=== PATIENT | female | born 1935 | race Caucasian/White ===

== ENCOUNTER 2019-04-09 08:22 | Inpatient (IN) | payer MEDICARE ==
[~2019-04-09] VITALS: Ht 162.6 cm; Wt 51.7 kg
[2019-04-09] VITALS (10 sets, daily range): BP systolic 128–162; BP diastolic 66–88
--- OUTSIDE RECORDS SUMMARY | 2019-04-09 08:26 | XMS REPORT ---
[facility] Address Unknown Phone Unavailable Care Team Providers Care Sales Representative Advertising Name Role Phone Unavailable Unavailable Payers Payer Name Policy Type Policy Number Effective Date Expiration Date Problems This patient has no known problems. Allergies, Adverse Reactions, Alerts Allergy Name Allergy Type Status Severity Reaction(s) Onset Date Inactive Date Treating Clinician Comments Penicillins DA Active MO 2018-10-07 00:00:00 iodine DA Active MO 2018-10-07 00:00:00 codeine DA Active MO 2018-10-07 00:00:00 Penicillins DA Active MO 2018-06-18 00:00:00 iodine DA Active MO 2018-06-18 00:00:00 codeine DA Active MO 2018-06-18 00:00:00 Penicillins DA Active MO 2017-08-24 00:00:00 iodine DA Active MO 2017-08-24 00:00:00 codeine DA Active MO 2017-08-24 00:00:00 PLASTIC TAPE DA Active 2017-08-01 00:00:00 Medications This patient has no known medications. Results Test Description Test Time Test Comments Text Results Atomic Results Result Comments VITAMIN B12 2018-10-16 12:07:00 VITAMIN B12 (test code=VITB12) 579 pg/mL 193-986 FOLIC [id number] 12:07:00* Test Item Value Reference Range Comments FOLIC ACID (test code=FOL) 14.1 ng/mL 3.10-17.50 THYROID PROFILE [id number] 12:07:00* Test Item Value Reference Range Comments T3 UPTAKE (test code=T3UP) 32.0 % 30.0-40.0 T4 (THYROXINE) (test code=T4) 12.0 ug/dL 4.5-13.9 T7 (FREE THYROXINE INDEX) (test code=T7) 3.84 FTI 1.3-5.1 THYROID STIMULATING HORMONE (test code=TSH) 1.230 uIU/mL 0.36-3.74 TSH REFERENCE RANGES: EUTHYROID: 0.35 - 4.3 mIU/mL HYPO : > 5.5 mIU/mL HYPER : < 0.35 mIU/mL METHYLMALONIC [id number] 12:07:00* Test Item Value Reference Range Comments METHYLMALONIC ACID (test code=METHM) 199 nmol/L 0-378 [id number] 12:07:00* Test Item Value Reference Range Comments HOMOCYSTEINE (test code=HOMOCY) 20.4 umol/L 0.0-15.0 Performed At: [facility] [address] [id number] Terence Palomares MD Ph:[phone] VITAMIN [id number] 08:10:00* Test Item Value Reference Range Comments VITAMIN B12 (test code=VITB12) 579 pg/mL 193-986 FOLIC [id number] 08:10:00* Test Item Value Reference Range Comments FOLIC ACID (test code=FOL) 14.1 ng/mL 3.10-17.50 THYROID PROFILE [id number] 08:10:00* Test Item Value Reference Range Comments T3 UPTAKE (test code=T3UP) 32.0 % 30.0-40.0 T4 (THYROXINE) (test code=T4) 12.0 ug/dL 4.5-13.9 T7 (FREE THYROXINE INDEX) (test code=T7) 3.84 FTI 1.3-5.1 THYROID STIMULATING HORMONE (test code=TSH) 1.230 uIU/mL 0.36-3.74 TSH REFERENCE RANGES: EUTHYROID: 0.35 - 4.3 mIU/mL HYPO : > 5.5 mIU/mL HYPER : < 0.35 mIU/mL METHYLMALONIC [id number] 08:10:00* Test Item Value Reference Range Comments METHYLMALONIC ACID (test code=METHM) nmol/L [id number] 08:10:00* Test Item Value Reference Range Comments HOMOCYSTEINE (test code=HOMOCY) 20.4 umol/L 0.0-15.0 Performed At: [facility] [id number] [place], [place] [id number] Terence Palomares MD Ph:[phone] - XR CHEST 1 [id number] 18:36:00 FAX: Craig Erickson MD [phone] [place]: St: ADM FAX: Anais Zhang [phone] Name: STEVE CRYSTAL [facility] : 1935 Age/S: 83/F [address] [facility] Unit #: [id number] Loc: [place] [address] Phys: Anais Maxwell MD Acct: [id number] Dis Date: Status: ADM IN PHONE #: [phone] Exam Date: 10/11/2018 1638 FAX #: [phone] Reason: WEAKNESS EXAMS: CPT CODE: [id number] XR CHEST 1 V [id number] REASON FOR EXAM: WEAKNESS Exam Order Date: 10/11/2018 4:19 PM Ordering M.D.: Anais Maxwell MD PROCEDURE: - XR CHEST 1 V COMPARISON: AP chest x-ray October 07, 2018 FINDINGS: There is subsegmental atelectasis in the lung bases. The lungs are otherwise clear. 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 Atherosclerotic disease is present in the aortic arch. Sternotomy wires and other muscular skeletal structures are stable appearing. The visualized upper abdomen is within normal limits. IMPRESSION: No acute cardiopulmonary process. Bibasilar subsegmental atelectasis. at 1836 Reported and signed by: Red Lantigua MD CC: Craig Robles MD; Anais Maxwell MD Technologist: DIANE FormanR; Sia AnnClaudia Trnscrd Date/Time/By: 10/11/2018 (1835) : By: [email or web address] Orig Print D/T: S: 10/11/2018 (223) PAGE 1 Signed Report VITAMIN [id number] 18:21:00* Test Item Value Reference Range Comments VITAMIN B12 (test code=VITB12) 579 pg/mL 193-986 FOLIC [id number] 18:21:00* Test Item Value Reference Range Comments FOLIC ACID (test code=FOL) 14.1 ng/mL 3.10-17.50 THYROID PROFILE [id number] 18:21:00* Test Item Value Reference Range Comments T3 UPTAKE (test code=T3UP) 32.0 % 30.0-40.0 T4 (THYROXINE) (test code=T4) 12.0 ug/dL 4.5-13.9 T7 (FREE THYROXINE INDEX) (test code=T7) 3.84 FTI 1.3-5.1 THYROID STIMULATING HORMONE (test code=TSH) 1.230 uIU/mL 0.36-3.74 TSH REFERENCE RANGES: EUTHYROID: 0.35 - 4.3 mIU/mL HYPO : > 5.5 mIU/mL HYPER : < 0.35 mIU/mL METHYLMALONIC [id number] 18:21:00* Test Item Value Reference Range Comments METHYLMALONIC ACID (test code=METHM) nmol/L [id number] 18:21:00* Test Item Value Reference Range Comments HOMOCYSTEINE (test code=HOMOCY) umol/L [id number] 18:09:00* Test Item Value Reference Range Comments ALCOHOL (test code=ALC) < 3 mg/dL 0.0-3.0 INTERPRETIVE DATA NOTE: POSITIVE SCREENING RESULTS SHOULD BE CONSIDERED PRESUMPTIVE.WHEN COLLECTED FOR MEDICAL PURPOSES ONLY. SPECIMEN WILL NOTBE COLLECTED BY CHAIN OF CUSTODY.IF A CONFIRMATION OF POSITIVE RESULTS IS DESIRED, ACONFIRMATION TEST MUST BE REQUESTED BY THE PHYSICIAN AT ANADDITIONAL CHARGE TO THE PATIENT. [id number] 18:08:00* Test Item Value Reference Range Comments ACETAMINOPHEN (test code=ACET) < 10 mcg/mL 10-30 A RANGE OF 10-30 mcg/mL IS A THERAPEUTIC RANGE. TOXIC CONCENTRATIONS: >150 mcg/mL AT 4 HOURS AFTER INGESTION >=50 mcg/mL AT 12 HOURS AFTER INGESTION [id number] 18:08:00* Test Item Value Reference Range Comments SALICYLATE (test code=JIMMIE) 2.0 mg/dL 2.8-20.0 BASIC METABOLIC [id number] 18:02:00* Test Item Value Reference Range Comments SODIUM (test code=NA) 139 mmol/L 136-145 POTASSIUM (test code=K) 3.6 mmol/L 3.5-5.1 CHLORIDE (test code=CL) 105.0 mmol/L 98-107 CARBON DIOXIDE (test code=CO2) 26.0 mmol/L 21-32 ANION GAP (test code=GAP) 11.6 10-20 GLUCOSE (test code=GLU) 79 mg/dL 74-106 BLOOD UREA NITROGEN (test code=BUN) 24 mg/dL 7-18 GLOMERULAR FILTRATION RATE (test code=GFR) 36 mL/min >=60 Estimated GFR by using Modified MDRD formula.Chronic kidney disease is defined as either kidney damageor GFR <60 mL/min/1.73 m2 for >3 months. CREATININE (test code=CREAT) 1.40 mg/dL 0.55-1.02 Note change in reference range due to change in reagent. BUN/CREATININE RATIO (test code=BUN/CREA) 17.6 10-20 CALCIUM (test code=CA) 9.9 mg/dL 8.5-10.1 Specimen 4+ Hemolysed.Results MAY NOT be accurate due to hemolysis.HEPATIC FUNCTION [id number] 18:02:00* Test Item Value Reference Range Comments TOTAL PROTEIN (test code=PROT) 7.9 gram/dL 6.4-8.2 ALBUMIN (test code=ALB) 4.3 g/dL 3.4-5.0 GLOBULIN (test code=GLOB) 3.6 gram/dL 2.7-4.2 ALBUMIN/GLOBULIN RATIO (test code=A/G) 1.2 0.75-1.50 BILIRUBIN TOTAL (test code=BILT) 0.60 mg/dL 0.0-1.0 BILIRUBIN DIRECT (test code=BILD) 0.19 mg/dL 0.0-0.20 SGOT/AST (test code=AST) 21 IUnit/L 15-37 SGPT/ALT (test code=ALT) 18 IUnit/L 12-78 ALKALINE PHOSPHATASE TOTAL (test code=ALKP) 117 IUnit/L 45-117 Note change in reference range due to change in reagent. Specimen 4+ Hemolysed.Results MAY NOT be accurate due to hemolysis.LIPASE 2018-10-11 18:02:00* Test Item Value Reference Range Comments LIPASE (test code=LIP) 212 U/L 73.0-393.0 Specimen 4+ Hemolysed.Results MAY NOT be accurate due to hemolysis.TROPONIN-I 2018-10-11 18:02:00* Test Item Value Reference Range Comments TROPONIN-I (test code=TROPI) 0.017 ng/mL 0-0.045 Specimen 4+ Hemolysed.Results MAY NOT be accurate due to hemolysis.BASIC METABOLIC [id number] 17:49:00* Test Item Value Reference Range Comments SODIUM (test code=NA) 139 mmol/L 136-145 POTASSIUM (test code=K) 3.6 mmol/L 3.5-5.1 CHLORIDE (test code=CL) 105.0 mmol/L 98-107 CARBON DIOXIDE (test code=CO2) mmol/L 21-32 ANION GAP (test code=GAP) 10-20 GLUCOSE (test code=GLU) mg/dL 74-106 BLOOD UREA NITROGEN (test code=BUN) mg/dL 7-18 GLOMERULAR FILTRATION RATE (test code=GFR) mL/min >=60 CREATININE (test code=CREAT) mg/dL 0.55-1.02 BUN/CREATININE RATIO (test code=BUN/CREA) 10-20 CALCIUM (test code=CA) mg/dL 8.5-10.1 Specimen 4+ Hemolysed.Results MAY NOT be accurate due to hemolysis.HEPATIC FUNCTION [id number] 17:49:00* Test Item Value Reference Range Comments TOTAL PROTEIN (test code=PROT) gram/dL 6.4-8.2 ALBUMIN (test code=ALB) g/dL 3.4-5.0 GLOBULIN (test code=GLOB) gram/dL 2.7-4.2 ALBUMIN/GLOBULIN RATIO (test code=A/G) 0.75-1.50 BILIRUBIN TOTAL (test code=BILT) mg/dL 0.0-1.0 BILIRUBIN DIRECT (test code=BILD) mg/dL 0.0-0.20 SGOT/AST (test code=AST) IUnit/L 15-37 SGPT/ALT (test code=ALT) IUnit/L 12-78 ALKALINE PHOSPHATASE TOTAL (test code=ALKP) IUnit/L 45-117 Specimen 4+ Hemolysed.Results MAY NOT be accurate due to hemolysis.LIPASE 2018-10-11 17:49:00* Test Item Value Reference Range Comments LIPASE (test code=LIP) U/L 73.0-393.0 Specimen 4+ Hemolysed.Results MAY NOT be accurate due to hemolysis.TROPONIN-I 2018-10-11 17:49:00* Test Item Value Reference Range Comments TROPONIN-I (test code=TROPI) ng/mL 0-0.045 Specimen 4+ Hemolysed.Results MAY NOT be accurate due to hemolysis. PROTHROMBIN [id number] 17:15:00* Test Item Value Reference Range Comments PROTHROMBIN TIME PATIENT (test code=PTP) 13.9 seconds 9.0-14.0 INTERNATIONAL NORMAL RATIO (test code=INR) 1.2 0.8-1.2 The therapeutic range for oral anticoagulant therapy formost indications is an international normalized ratio (INR)of between 2.0 and 3.0. The recommended therapeutic INRrange for various clinical situations is listed below: Clinical Situation INR range Pulmonary e mbolism treatment (2.0-3.0)Venous thrombosis treatmentVenous thrombosis prophylaxis (high risk surgery)Prevention of systemic embolism from: Acute myocardial infarction Valvular heart disease Atrial fibrillation Mechanical prosthetic heart valves (2.5-3.5) IS PATIENT ON ANTICOAGULANTS? NTHROMBOPLASTIN TIME [id number] 17:15:00* Test Item Value Reference Range Comments THROMBOPLASTIN TIME PARTIAL (test code=PTT) 38.1 seconds 25.0-36.5 IS PATIENT ON ANTICOAGULANTS? NCBC W/O [id number] 17:03:00* Test Item Value Reference Range Comments WHITE BLOOD CELL (test code=WBC) 6.5 K/mm3 4.5-12.5 RED BLOOD CELL (test code=RBC) 4.59 mill/mm3 3.7-5.2 HEMOGLOBIN (test code=HGB) 12.3 gram/dL 11.5-15.5 HEMATOCRIT (test code=HCT) 40.1 % 36.0-46.0 MEAN CELL VOLUME (test code=MCV) 87.4 fL 80-98 MEAN CELL HGB (test code=MCH) 26.8 picogram 27.0-33.0 MEAN CELL HGB CONCETRATION (test code=MCHC) 30.7 gram/dL 33.0-36.0 RED CELL DISTRIBUTION WIDTH (test code=RDW) 18.0 % 11.6-16.2 PLATELET COUNT (test code=PLT) 242 K/mm3 150-450 MEAN PLATELET VOLUME (test code=MPV) 10.8 fL 6.7-11.0 CBC W/O [id number] 17:00:00* Test Item Value Reference Range Comments WHITE BLOOD CELL (test code=WBC) K/mm3 4.5-12.5 RED BLOOD CELL (test code=RBC) mill/mm3 3.7-5.2 HEMOGLOBIN (test code=HGB) 12.3 gram/dL 11.5-15.5 HEMATOCRIT (test code=HCT) 40.1 % 36.0-46.0 MEAN CELL VOLUME (test code=MCV) fL 80-98 MEAN CELL HGB (test code=MCH) picogram 27.0-33.0 MEAN CELL HGB CONCETRATION (test code=MCHC) gram/dL 33.0-36.0 RED CELL DISTRIBUTION WIDTH (test code=RDW) % 11.6-16.2 PLATELET COUNT (test code=PLT) K/mm3 150-450 MEAN PLATELET VOLUME (test code=MPV) fL 6.7-11.0 BASIC METABOLIC [id number] 15:34:00* Test Item Value Reference Range Comments SODIUM (test code=NA) 141 mmol/L 136-145 POTASSIUM (test code=K) 3.2 mmol/L 3.5-5.1 CHLORIDE (test code=CL) 108.0 mmol/L 98-107 CARBON DIOXIDE (test code=CO2) 27.0 mmol/L 21-32 ANION GAP (test code=GAP) 9.2 10-20 GLUCOSE (test code=GLU) 200 mg/dL 74-106 BLOOD UREA NITROGEN (test code=BUN) 12 mg/dL 7-18 GLOMERULAR FILTRATION RATE (test code=GFR) 48 mL/min >=60 Estimated GFR by using Modified MDRD formula.Chronic kidney disease is defined as either kidney damageor GFR <60 mL/min/1.73 m2 for >3 months. CREATININE (test code=CREAT) 1.10 mg/dL 0.55-1.02 Note change in reference range due to change in reagent. BUN/CREATININE RATIO (test code=BUN/CREA) 10.9 10-20 CALCIUM (test code=CA) 8.6 mg/dL 8.5-10.1 LACTIC [id number] 23:34:00* Test Item Value Reference Range Comments LACTIC ACID (test code=LACT) 1.5 mmol/L 0.4-1.9 PROCALCITONIN (PCT)2018-10-07 21:56:00* Test Item Value Reference Range Comments PROCALCITONIN (PCT) (test code=PROCAL) < 0.05 ng/ml Concentration Interpretation (ng/mL) <0.51 Sepsis is not likely. Local bacterial infection is possible. (LOW RISK for progression to Sepsis) 0.51 - 2.00 Sepsis is possible, but other conditions are known to elevate PCT as well. (MODERATE RISK for progression to Sepsis) > 2.00 Sepsis is likely, unless other causes are known. (HIGH RISK for progression to Severe Sepsis or Septic Shock) 10.00 High likelihood of Severe Sepsis or Septic or higher Shock. *Increased PCT levels may not always be related to systemic bacterial infection.*Low PCT levels do not automatically exclude the presence of bacterial infection.*All results should be interpreted taking into account the patients history. BASIC METABOLIC [id number] 21:40:00* Test Item Value Reference Range Comments SODIUM (test code=NA) 143 mmol/L 136-145 POTASSIUM (test code=K) 3.2 mmol/L 3.5-5.1 CHLORIDE (test code=CL) 109.0 mmol/L 98-107 CARBON DIOXIDE (test code=CO2) 28.0 mmol/L 21-32 ANION GAP (test code=GAP) 9.2 10-20 GLUCOSE (test code=GLU) 149 mg/dL 74-106 BLOOD UREA NITROGEN (test code=BUN) 13 mg/dL 7-18 GLOMERULAR FILTRATION RATE (test code=GFR) 48 mL/min >=60 Estimated GFR by using Modified MDRD formula.Chronic kidney disease is defined as either kidney damageor GFR <60 mL/min/1.73 m2 for >3 months. CREATININE (test code=CREAT) 1.10 mg/dL 0.55-1.02 Note change in reference range due to change in reagent. BUN/CREATININE RATIO (test code=BUN/CREA) 11.8 10-20 CALCIUM (test code=CA) 8.1 mg/dL 8.5-10.1 HEPATIC FUNCTION [id number] 21:40:00* Test Item Value Reference Range Comments TOTAL PROTEIN (test code=PROT) 6.6 gram/dL 6.4-8.2 ALBUMIN (test code=ALB) 3.1 g/dL 3.4-5.0 GLOBULIN (test code=GLOB) 3.5 gram/dL 2.7-4.2 ALBUMIN/GLOBULIN RATIO (test code=A/G) 0.9 0.75-1.50 BILIRUBIN TOTAL (test code=BILT) 0.30 mg/dL 0.0-1.0 BILIRUBIN DIRECT (test code=BILD) 0.09 mg/dL 0.0-0.20 SGOT/AST (test code=AST) 18 IUnit/L 15-37 SGPT/ALT (test code=ALT) 16 IUnit/L 12-78 ALKALINE PHOSPHATASE TOTAL (test code=ALKP) 98 IUnit/L 45-117 Note change in reference range due to change in reagent. [id number] 21:40:00* Test Item Value Reference Range Comments TROPONIN-I (test code=TROPI) <0.015 ng/mL 0-0.045 URINALYSIS [id number] 21:32:00* Test Item Value Reference Range Comments UA COLOR (test code=COLU) Light-Yellow YELLOW UA APPEARANCE (test code=APPU) CLEAR CLEAR UA GLUCOSE DIPSTICK (test code=DGLUU) NEGATIVE mg/dL NEGATIVE UA BILIRUBIN DIPSTICK (test code=BILU) NEGATIVE mg/dL NEGATIVE UA KETONE DIPSTICK (test code=KETU) NEGATIVE mg/dL NEGATIVE UA SPECIFIC GRAVITY (test code=SGU) 1.010 1.001-1.035 UA BLOOD DIPSTICK (test code=SEVEN) Negative mg/dL NEGATIVE UA PH DIPSTICK (test code=AIMEE) 7.0 5.0-8.0 UA PROTEIN DIPSTICK (test code=PROU) 10 (Trace) mg/dL NEGATIVE UA UROBILINIOGEN DIPSTICK (test code=URO) Normal mg/dL NEGATIVE UA NITRITE DIPSTICK (test code=JOYA) NEGATIVE NEGATIVE UA LEUKOCYTE ESTERASE W REFLEX (test code=LEUUR) NEGATIVE Viv/uL NEGATIVE UA WBC (test code=WBCU) 0-5 per HPF 0-5 UA RBC (test code=RBCU) 6-10 #/HPF 0-5 UA EPITHELIAL CELLS (test code=EPIU) Rare (0-1/hpf) per HPF FEW UA BACTERIA (test code=BACU) FEW #/HPF NONE UA HYALINE CAST (test code=HYALU) 6-10 #/LPF 0-5 UA MUCUS (test code=MUCU) FEW #/LPF FEW Urine Source? Clean CatchURINALYSIS [id number] 21:31:00* Test Item Value Reference Range Comments UA COLOR (test code=COLU) Light-Yellow YELLOW UA APPEARANCE (test code=APPU) CLEAR CLEAR UA GLUCOSE DIPSTICK (test code=DGLUU) NEGATIVE mg/dL NEGATIVE UA BILIRUBIN DIPSTICK (test code=BILU) NEGATIVE mg/dL NEGATIVE UA KETONE DIPSTICK (test code=KETU) NEGATIVE mg/dL NEGATIVE UA SPECIFIC GRAVITY (test code=SGU) 1.010 1.001-1.035 UA BLOOD DIPSTICK (test code=SEVEN) Negative mg/dL NEGATIVE UA PH DIPSTICK (test code=AIMEE) 7.0 5.0-8.0 UA PROTEIN DIPSTICK (test code=PROU) 10 (Trace) mg/dL NEGATIVE UA UROBILINIOGEN DIPSTICK (test code=URO) Normal mg/dL NEGATIVE UA NITRITE DIPSTICK (test code=JOYA) NEGATIVE NEGATIVE UA LEUKOCYTE ESTERASE W REFLEX (test code=LEUUR) NEGATIVE Viv/uL NEGATIVE UA WBC (test code=WBCU) per HPF 0-5 UA RBC (test code=RBCU) per HPF 0-5 UA EPITHELIAL CELLS (test code=EPIU) per HPF Few UA BACTERIA (test code=BACU) per HPF NONE Urine Source? Clean CatchBASIC METABOLIC [id number] 21:26:00* Test Item Value Reference Range Comments SODIUM (test code=NA) 143 mmol/L 136-145 POTASSIUM (test code=K) 3.2 mmol/L 3.5-5.1 CHLORIDE (test code=CL) 109.0 mmol/L 98-107 CARBON DIOXIDE (test code=CO2) mmol/L 21-32 ANION GAP (test code=GAP) 10-20 GLUCOSE (test code=GLU) mg/dL 74-106 BLOOD UREA NITROGEN (test code=BUN) mg/dL 7-18 GLOMERULAR FILTRATION RATE (test code=GFR) mL/min >=60 CREATININE (test code=CREAT) mg/dL 0.55-1.02 BUN/CREATININE RATIO (test code=BUN/CREA) 10-20 CALCIUM (test code=CA) mg/dL 8.5-10.1 HEPATIC FUNCTION [id number] 21:26:00* Test Item Value Reference Range Comments TOTAL PROTEIN (test code=PROT) gram/dL 6.4-8.2 ALBUMIN (test code=ALB) g/dL 3.4-5.0 GLOBULIN (test code=GLOB) gram/dL 2.7-4.2 ALBUMIN/GLOBULIN RATIO (test code=A/G) 0.75-1.50 BILIRUBIN TOTAL (test code=BILT) mg/dL 0.0-1.0 BILIRUBIN DIRECT (test code=BILD) mg/dL 0.0-0.20 SGOT/AST (test code=AST) IUnit/L 15-37 SGPT/ALT (test code=ALT) IUnit/L 12-78 ALKALINE PHOSPHATASE TOTAL (test code=ALKP) IUnit/L 45-117 [id number] 21:26:00* Test Item Value Reference Range Comments TROPONIN-I (test code=TROPI) ng/mL 0-0.045 - XR CHEST 1 [id number] 21:24:00 FAX: Elida Botello DO [place]: B St: REG FAX: Craig Erickson MD [phone] Name: STEVE CRYSTAL [facility] : 1935 Age/S: 83/F [address] [facility] Unit #: [id number] Loc: [facility] [place] [address] Phys: Elida Botello DO Acct: [id number] Dis Date: Status: REG ER PHONE #: [phone] Exam Date: 10/07/20182034 FAX #: [phone] Reason: CODE SEPSIS EXAMS: CPT CODE: [id number] XR CHEST 1 V [id number] REASON FOR EXAM: CODE SEPSIS Exam Order Date: 10/07/2018 8:01 PM Ordering MSin: Elida Botello DO PROCEDURE: - XR CHEST 1 V COMPARISON: AP chest x-ray September 17, 2018 FINDINGS: Lung volumes are diminished and there is subsegmental atelectasis in the lung bases. Cardiomediastinal silhouette is normal in size for technique. Atherosclerotic disease is present in the aortic arch. Surgical clips are present in the mediastinum. Sternotomy wires are unchanged. Prior cholecystectomy. IMPRESSION: Low lung volumes with bibasilar subsegmental atelectasis. Post surgical changes of CABG are stable from the previous study. at 2124 Reported and signed by: Rde Lantigua MD CC: Elida Botello DO; Craig Robles MD Technologist: Luci Miles) Trnscrd Date/Time/By: 9 (2123) : By: [email or web address] Orig Print D/T: S: 10/07/2018 (2126) PAGE 1 Signed Report LACTIC [id number] 20:40:00* Test Item Value Reference Range Comments LACTIC ACID (test code=LACT) 3.7 mmol/L 0.4-1.9 Results called to [id number] by VADELE. 10/07/182039Critical results verified and read back by Nurse? Y PROTHROMBIN [id number] 20:26:00* Test Item Value Reference Range Comments PROTHROMBIN TIME PATIENT (test code=PTP) 13.8 seconds 9.0-14.0 INTERNATIONAL NORMAL RATIO (test code=INR) 1.2 0.8-1.2 The therapeutic range for oral anticoagulant therapy formost indications is an international normalized ratio (INR)of between 2.0 and 3.0. The recommended therapeutic INRrange for various clinical situations is listed below: Clinical Situation INR range Pulmonary e mbolism treatment (2.0-3.0)Venous thrombosis treatmentVenous thrombosis prophylaxis (high risk surgery)Prevention of systemic embolism from: Acute myocardial infarction Valvular heart disease Atrial fibrillation Mechanical prosthetic heart valves (2.5-3.5) THROMBOPLASTIN TIME [id number] 20:26:00* Test Item Value Reference Range Comments THROMBOPLASTIN TIME PARTIAL (test code=PTT) 37.4 seconds 25.0-36.5 - CT HEAD/BRAIN W/O [id number] 20:26:00 Name: STEVE CRYSTAL [facility] : 1935 Age/S: 83 / F [address] Unit #: [id number] Loc: [place] [address] Phys: Elida Botello DO Acct: [id number] Dis Date: Status: PRE ER PHONE #: [phone] Exam Date: 10/07/20182014 FAX #: [phone] Reason: weakness EXAMS: CPT CODE: [id number] CT HEAD/BRAIN W/O CONT 59528 HISTORY: weakness TECHNIQUE: Noncontrast 2.[address] of the head. Examination acquired within 24 hours of arrival. Automated exposure control for dose reduction. COMPARISON: Noncontrast CT scan of the head September 17, 2018 FINDINGS: No acute hemorrhage. No intracranial mass, mass effect, or midline shift. There is extensive encephalomalacia and periventricular white matter ischemic changes. 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 These are unchanged from the previous exam. Ventricular megalies unchanged. Visualized paranasal sinuses are clear. Mastoid air cells and middle ear cavities are clear. Prior lens extraction bila terally.. Calvarium and skull base are intact. Atherosclerotic disease is present in the carotid siphons. IMPRESSION: No acute intracranial process. Prior infarctions, acute phillip ical atrophy, ventriculomegaly, and chronic white matter microvascular i schemic changes are stable from the previous study September 17, 2018. Dr. Botello (ER) notified by telephone of preliminary results at 8: 25 PM October 07, 2018. at 2025 Reported and signed by: Red miller MD CC: Elida Botello DO; Craig Robles MD Technolo gist:Escobar Mena, RT(R)(CT) CTDI: DLP: Trnscb Date/Time: 10/07/2018 (2025) t.[id number]/[email or web address].[id number] Orig Print D/T: S: 10/07/2018 (2028) PAGE 1 Signed Report CBC W/AUTO [id number] 20:23:00* Test Item Value Reference Range Comments WHITE BLOOD CELL (test code=WBC) 7.3 K/mm3 4.5-12.5 RED BLOOD CELL (test code=RBC) 4.37 mill/mm3 3.7-5.2 HEMOGLOBIN (test code=HGB) 11.6 gram/dL 11.5-15.5 HEMATOCRIT (test code=HCT) 38.4 % 36.0-46.0 MEAN CELL VOLUME (test code=MCV) 87.9 fL 80-98 MEAN CELL HGB (test code=MCH) 26.5 picogram 27.0-33.0 MEAN CELL HGB CONCETRATION (test code=MCHC) 30.2 gram/dL 33.0-36.0 RED CELL DISTRIBUTION WIDTH (test code=RDW) 18.1 % 11.6-16.2 RED CELL DISTRIBUTION WIDTH SD (test code=RDW-SD) 55.0 fL 37.0-51.0 PLATELET COUNT (test code=PLT) 288 K/mm3 150-450 MEAN PLATELET VOLUME (test code=MPV) 11.0 fL 6.7-11.0 NEUTROPHIL % (test code=NT%) 53.2 % 39.0-69.0 IMMATURE GRANULOCYTE % (test code=IG%) 0.3 % 0.0-5.0 LYMPHOCYTE % (test code=LY%) 29.9 % 25.0-55.0 MONOCYTE % (test code=MO%) 8.6 % 0.0-10.0 EOSINOPHIL % (test code=EO%) 7.0 % 0.0-5.0 BASOPHIL % (test code=BA%) 1.0 % 0.0-1.0 NUCLEATED RBC % (test code=NRBC%) 0.0 % 0-0 NEUTROPHIL # (test code=NT#) 3.89 K/mm3 1.8-7.7 IMMATURE GRANULOCYTE # (test code=IG#) 0.02 x10 3/uL 0-0.03 LYMPHOCYTE # (test code=LY#) 2.18 K/mm3 1.0-5.0 MONOCYTE # (test code=MO#) 0.63 K/mm3 0-0.8 EOSINOPHIL # (test code=EO#) 0.51 K/mm3 0.0-0.5 BASOPHIL # (test code=BA#) 0.07 K/mm3 0.0-0.2 NUCLEATED RBC # (test code=NRBC#) 0.00 K/mm3 0.0-0.1 MANUAL DIFF REQUIRED (test code=MDIFF) NO FE W/TOTAL IRON BINDING CAP.2018-09-17 15:45:00* Test Item Value Reference Range Comments SERUM IRON (test code=IRON) 30 ug/dL 50-175 TOTAL IRON BINDING CAPACITY (test code=TIBC) 374 mcg/dL 250-450 IRON SATURATION (test code=FESAT) 8.02 % 13-45 URINALYSIS [id number] 15:22:00* Test Item Value Reference Range Comments UA COLOR (test code=COLU) YELLOW YELLOW UA APPEARANCE (test code=APPU) CLEAR CLEAR UA GLUCOSE DIPSTICK (test code=DGLUU) NEGATIVE mg/dL NEGATIVE UA BILIRUBIN DIPSTICK (test code=BILU) NEGATIVE NEGATIVE UA KETONE DIPSTICK (test code=KETU) 1+ mg/dL NEGATIVE UA SPECIFIC GRAVITY (test code=SGU) 1.020 1.001-1.035 UA BLOOD DIPSTICK (test code=SEVEN) 1+ (Small) NEGATIVE UA PH DIPSTICK (test code=AIMEE) 6.0 5.0-8.0 UA PROTEIN DIPSTICK (test code=PROU) NEGATIVE mg/dL Neg-15 UA UROBILINIOGEN DIPSTICK (test code=URO) 1 mg/dL (1+) mg/dL 0.0-0.2 UA NITRITE DIPSTICK (test code=JOYA) POSITIVE NEGATIVE UA LEUKOCYTE ESTERASE W REFLEX (test code=LEUUR) 1+ NEGATIVE UA WBC (test code=WBCU) 0-5 per HPF 0-5 UA RBC (test code=RBCU) 0-3 per HPF 0-5 UA EPITHELIAL CELLS (test code=EPIU) FEW per HPF Few UA BACTERIA (test code=BACU) MODERATE per HPF NONE UA MUCUS (test code=MUCU) FEW per LPF NONE-FEW Urine Source? Clean CatchURINALYSIS [id number] 15:21:00* Test Item Value Reference Range Comments UA COLOR (test code=COLU) YELLOW YELLOW UA APPEARANCE (test code=APPU) CLEAR CLEAR UA GLUCOSE DIPSTICK (test code=DGLUU) NEGATIVE mg/dL NEGATIVE UA BILIRUBIN DIPSTICK (test code=BILU) NEGATIVE NEGATIVE UA KETONE DIPSTICK (test code=KETU) 1+ mg/dL NEGATIVE UA SPECIFIC GRAVITY (test code=SGU) 1.020 1.001-1.035 UA BLOOD DIPSTICK (test code=SEVEN) 1+ (Small) NEGATIVE UA PH DIPSTICK (test code=AIMEE) 6.0 5.0-8.0 UA PROTEIN DIPSTICK (test code=PROU) NEGATIVE mg/dL Neg-15 UA UROBILINIOGEN DIPSTICK (test code=URO) 1 mg/dL (1+) mg/dL 0.0-0.2 UA NITRITE DIPSTICK (test code=JOYA) POSITIVE NEGATIVE UA LEUKOCYTE ESTERASE W REFLEX (test code=LEUUR) 1+ NEGATIVE UA WBC (test code=WBCU) per HPF 0-5 UA RBC (test code=RBCU) per HPF 0-5 UA EPITHELIAL CELLS (test code=EPIU) per HPF Few UA BACTERIA (test code=BACU) per HPF NONE Urine Source? Clean CatchB-TYPE NATRIURETIC [id number] 13:10:00* Test Item Value Reference Range Comments B-TYPE NATRIURETIC PEPTIDE (test code=BNP) 82.20 pgram/mL 0-100 BASIC METABOLIC [id number] 13:05:00* Test Item Value Reference Range Comments SODIUM (test code=NA) 140 mmol/L 136-145 POTASSIUM (test code=K) 3.2 mmol/L 3.5-5.1 CHLORIDE (test code=CL) 103.0 mmol/L 98-107 CARBON DIOXIDE (test code=CO2) 29.0 mmol/L 21-32 ANION GAP (test code=GAP) 11.2 10-20 GLUCOSE (test code=GLU) 79 mg/dL 74-106 BLOOD UREA NITROGEN (test code=BUN) 13 mg/dL 7-18 GLOMERULAR FILTRATION RATE (test code=GFR) > 60 mL/min >=60 Estimated GFR by using Modified MDRD formula.Chronic kidney disease is defined as either kidney damageor GFR <60 mL/min/1.73 m2 for >3 months. CREATININE (test code=CREAT) 0.80 mg/dL 0.55-1.02 Note change in reference range due to change in reagent. BUN/CREATININE RATIO (test code=BUN/CREA) 16.1 10-20 CALCIUM (test code=CA) 9.5 mg/dL 8.5-10.1 CREATINE KINASE (CK)2018-09-17 13:05:00* Test Item Value Reference Range Comments CREATINE KINASE (CK) (test code=CK) 110 IUnit/L 26-208 [id number] 13:05:00* Test Item Value Reference Range Comments MAGNESIUM (test code=MAG) 2.1 mg/dL 1.8-2.4 [id number] 13:05:00* Test Item Value Reference Range Comments TROPONIN-I (test code=TROPI) <0.015 ng/mL 0-0.045 PROTHROMBIN [id number] 12:55:00* Test Item Value Reference Range Comments PROTHROMBIN TIME PATIENT (test code=PTP) 15.6 seconds 9.0-14.0 INTERNATIONAL NORMAL RATIO (test code=INR) 1.3 0.8-1.2 The therapeutic range for oral anticoagulant therapy formost indications is an international normalized ratio (INR)of between 2.0 and 3.0. The recommended therapeutic INRrange for various clinical situations is listed below: Clinical Situation INR range Pulmonary e mbolism treatment (2.0-3.0)Venous thrombosis treatmentVenous thrombosis prophylaxis (high risk surgery)Prevention of systemic embolism from: Acute myocardial infarction Valvular heart disease Atrial fibrillation Mechanical prosthetic heart valves (2.5-3.5) IS PATIENT ON ANTICOAGULANTS? NTHROMBOPLASTIN TIME [id number] 12:55:00* Test Item Value Reference Range Comments THROMBOPLASTIN TIME PARTIAL (test code=PTT) 38.7 seconds 25.0-36.5 IS PATIENT ON ANTICOAGULANTS? NBASIC METABOLIC [id number] 12:53:00* Test Item Value Reference Range Comments SODIUM (test code=NA) 140 mmol/L 136-145 POTASSIUM (test code=K) 3.2 mmol/L 3.5-5.1 CHLORIDE (test code=CL) 103.0 mmol/L 98-107 CARBON DIOXIDE (test code=CO2) mmol/L 21-32 ANION GAP (test code=GAP) 10-20 GLUCOSE (test code=GLU) mg/dL 74-106 BLOOD UREA NITROGEN (test code=BUN) mg/dL 7-18 GLOMERULAR FILTRATION RATE (test code=GFR) mL/min >=60 CREATININE (test code=CREAT) mg/dL 0.55-1.02 BUN/CREATININE RATIO (test code=BUN/CREA) 10-20 CALCIUM (test code=CA) mg/dL 8.5-10.1 CREATINE KINASE (CK)2018-09-17 12:53:00* Test Item Value Reference Range Comments CREATINE KINASE (CK) (test code=CK) IUnit/L 26-208 [id number] 12:53:00* Test Item Value Reference Range Comments MAGNESIUM (test code=MAG) mg/dL 1.8-2.4 [id number] 12:53:00* Test Item Value Reference Range Comments TROPONIN-I (test code=TROPI) ng/mL 0-0.045 CBC W/O [id number] 12:45:00* Test Item Value Reference Range Comments WHITE BLOOD CELL (test code=WBC) 11.3 K/mm3 4.5-12.5 RED BLOOD CELL (test code=RBC) 4.75 mill/mm3 3.7-5.2 HEMOGLOBIN (test code=HGB) 12.5 gram/dL 11.5-15.5 HEMATOCRIT (test code=HCT) 41.4 % 36.0-46.0 MEAN CELL VOLUME (test code=MCV) 86.7 fL 80-98 MEAN CELL HGB (test code=MCH) 26.1 picogram 27.0-33.0 MEAN CELL HGB CONCETRATION (test code=MCHC) 30.1 gram/dL 33.0-36.0 RED CELL DISTRIBUTION WIDTH (test code=RDW) 20.2 % 11.6-16.2 PLATELET COUNT (test code=PLT) 212 K/mm3 150-450 MEAN PLATELET VOLUME (test code=MPV) 10.1 fL 6.7-11.0 CBC W/O [id number] 12:42:00* Test Item Value Reference Range Comments WHITE BLOOD CELL (test code=WBC) K/mm3 4.5-12.5 RED BLOOD CELL (test code=RBC) mill/mm3 3.7-5.2 HEMOGLOBIN (test code=HGB) 12.5 gram/dL 11.5-15.5 HEMATOCRIT (test code=HCT) 41.4 % 36.0-46.0 MEAN CELL VOLUME (test code=MCV) fL 80-98 MEAN CELL HGB (test code=MCH) picogram 27.0-33.0 MEAN CELL HGB CONCETRATION (test code=MCHC) gram/dL 33.0-36.0 RED CELL DISTRIBUTION WIDTH (test code=RDW) % 11.6-16.2 PLATELET COUNT (test code=PLT) K/mm3 150-450 MEAN PLATELET VOLUME (test code=MPV) fL 6.7-11.0 - CT HEAD/BRAIN W/O [id number] 11:49:00 Name: STEVE CRYSTAL [facility] : 1935 Age/S: 83 / F [address] [facility] Unit #: [id number] Loc: [place] [address] Phys: Tonny Larios MD Acct: [id number] Dis Date: Status: REG ER PHONE #: [phone] Exam Date: 09/17/2018 1110 FAX #: [phone] Reason: weakness EXAMS: CPT CODE: [id number] CT HEAD/BRAIN W/O CONT [id number] EXAM: CT of the head without contrast; INFORMATION: Generalized weakness; TECHNIQUE AND FINDINGS: CT dose reduction protocol; 2.5 mm cuts without contrast. There is no evidence of intra or extra-axial hemorrhage, mass lesions or midline shift. 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 Chronic parietal and occipital infarct, as described on a previous study from June 18, 2018. Ventricles are symmetric and are moderately dilated; prominent sulci and basilar cisterns. Calcifications of the internal carotid arteries. The calvarium is intact. Status post left maxillary sinus surgery aerated, except for mild mucosal swelling in the left sphenoid sinus. Mastoid air cells are well aerated. IMPRESSION: 1. No evidence of intracranial hemorrhage or acute territorial infarction. 2. No change compared with a study from June 18, 2018, sh owing extensive chronic ischemic changes. 3. Mild left sphenoid sinusitis. at 1149 Reported and signed by: Bhavesh Barclay M.D. CC: Tonny Larios MD; Craig Rolbes MD Technologist:Snow Dorado RT(R),CT CTDI: DLP: Trnscb Date/Time: 09/17/2018 (0340) t.[email or web address] Orig Print D/T: S: 09/17/2018 (0433) PAGE 1 Signed Report - XR CHEST 1 [id number] 10:29:00 FAX: Tonny Ordoñez [phone] [place]: St: REG FAX: Craig Erickson MD [phone] Name: STEVE CRYSTAL [facility] : 1935 Age/S: 83/F [address] [facility] Unit #: [id number] Loc: [place] [address] Phys: Tonny Larios MD Acct: [id number] Dis Date: Status: REG ER PHONE #: [phone] Exam Date: 09/17/2018 1028 FAX #: [phone] Reason: WEAKNESS EXAMS: CPT CODE: [id number] XR CHEST 1 V 57410 EXAM: Chest x-ray, one view; INFORMATION: Generalized weakness; IMPRESSION: 1. No evidence of active cardiopulmonary disease. 2. Compared with a study from June 18, 2018 the heart has slightly decreased in size; mild cardiomegaly remains. at 1029 Reported and signed by: Bhavesh Barclay M.D. CC: Tonny Larios MD; Craig Robles MD Technologist: EDDI TREVINO RT(R) Trnscrd Date/Time/By: 09/17/2018 (4053) : By: TenishaGRW Orig Print D/T: S: 09/17/2018 (3531) PAGE 1 Signed Report CBC W/AUTO DIFF 2018-07-13 11:41:00* Test Item Value Reference Range Comments WHITE BLOOD CELL (test code=WBC) 6.2 K/mm3 4.5-12.5 RED BLOOD CELL (test code=RBC) 4.38 mill/mm3 3.7-5.2 HEMOGLOBIN (test code=HGB) 10.3 gram/dL 11.5-15.5 HEMATOCRIT (test code=HCT) 36.5 % 36.0-46.0 MEAN CELL VOLUME (test code=MCV) 83.3 fL 80-98 MEAN CELL HGB (test code=MCH) 23.5 picogram 27.0-33.0 MEAN CELL HGB CONCETRATION (test code=MCHC) 28.2 gram/dL 33.0-36.0 RED CELL DISTRIBUTION WIDTH (test code=RDW) 21.7 % 11.6-16.2 RED CELL DISTRIBUTION WIDTH SD (test code=RDW-SD) 64.2 fL 37.0-51.0 PLATELET COUNT (test code=PLT) 280 K/mm3 150-450 MEAN PLATELET VOLUME (test code=MPV) 11.8 fL 6.7-11.0 NEUTROPHIL % (test code=NT%) 65.9 % 39.0-69.0 IMMATURE GRANULOCYTE % (test code=IG%) 0.3 % 0.0-5.0 LYMPHOCYTE % (test code=LY%) 20.5 % 25.0-55.0 MONOCYTE % (test code=MO%) 8.1 % 0.0-10.0 EOSINOPHIL % (test code=EO%) 4.2 % 0.0-5.0 BASOPHIL % (test code=BA%) 1.0 % 0.0-1.0 NUCLEATED RBC % (test code=NRBC%) 0.0 % 0-0 NEUTROPHIL # (test code=NT#) 4.06 K/mm3 1.8-7.7 IMMATURE GRANULOCYTE # (test code=IG#) 0.02 x10 3/uL 0-0.03 LYMPHOCYTE # (test code=LY#) 1.26 K/mm3 1.0-5.0 MONOCYTE # (test code=MO#) 0.50 K/mm3 0-0.8 EOSINOPHIL # (test code=EO#) 0.26 K/mm3 0.0-0.5 BASOPHIL # (test code=BA#) 0.06 K/mm3 0.0-0.2 NUCLEATED RBC # (test code=NRBC#) 0.00 K/mm3 0.0-0.1 MANUAL DIFF REQUIRED (test code=MDIFF) NO, ONLY SCAN NEEDED DIFFERENTIAL [id number] 11:41:00* Test Item Value Reference Range Comments STAIN ACCEPTABILITY (test code=STN ACCEPTABLE) STAIN ACCEPTABLE POLYCHROMASIA (test code=POLC) 3+ POIKILOCYTOSIS (test code=POIK) 1+ ANISOCYTOSIS (test code=ANISO) 1+ MICROCYTOSIS (test code=MICR) 1+ ELLIPTOCYTES (test code=ELL) 1+ PLATELET ESTIMATE (test code=PLTEST) ADEQUATE PLATELET MORPHOLOGY (test code=PLTMORPH) NORMAL CBC W/AUTO [id number] 10:53:00* Test Item Value Reference Range Comments WHITE BLOOD CELL (test code=WBC) 6.2 K/mm3 4.5-12.5 RED BLOOD CELL (test code=RBC) 4.38 mill/mm3 3.7-5.2 HEMOGLOBIN (test code=HGB) 10.3 gram/dL 11.5-15.5 HEMATOCRIT (test code=HCT) 36.5 % 36.0-46.0 MEAN CELL VOLUME (test code=MCV) 83.3 fL 80-98 MEAN CELL HGB (test code=MCH) 23.5 picogram 27.0-33.0 MEAN CELL HGB CONCETRATION (test code=MCHC) 28.2 gram/dL 33.0-36.0 RED CELL DISTRIBUTION WIDTH (test code=RDW) 21.7 % 11.6-16.2 RED CELL DISTRIBUTION WIDTH SD (test code=RDW-SD) 64.2 fL 37.0-51.0 PLATELET COUNT (test code=PLT) 280 K/mm3 150-450 MEAN PLATELET VOLUME (test code=MPV) 11.8 fL 6.7-11.0 NEUTROPHIL % (test code=NT%) 65.9 % 39.0-69.0 IMMATURE GRANULOCYTE % (test code=IG%) 0.3 % 0.0-5.0 LYMPHOCYTE % (test code=LY%) 20.5 % 25.0-55.0 MONOCYTE % (test code=MO%) 8.1 % 0.0-10.0 EOSINOPHIL % (test code=EO%) 4.2 % 0.0-5.0 BASOPHIL % (test code=BA%) 1.0 % 0.0-1.0 NUCLEATED RBC % (test code=NRBC%) 0.0 % 0-0 NEUTROPHIL # (test code=NT#) 4.06 K/mm3 1.8-7.7 IMMATURE GRANULOCYTE # (test code=IG#) 0.02 x10 3/uL 0-0.03 LYMPHOCYTE # (test code=LY#) 1.26 K/mm3 1.0-5.0 MONOCYTE # (test code=MO#) 0.50 K/mm3 0-0.8 EOSINOPHIL # (test code=EO#) 0.26 K/mm3 0.0-0.5 BASOPHIL # (test code=BA#) 0.06 K/mm3 0.0-0.2 NUCLEATED RBC # (test code=NRBC#) 0.00 K/mm3 0.0-0.1 MANUAL DIFF REQUIRED (test code=MDIFF) NO, ONLY SCAN NEEDED DIFFERENTIAL [id number] 10:53:00* Test Item Value Reference Range Comments STAIN ACCEPTABILITY (test code=STN ACCEPTABLE) CABOT RINGS (test code=CAB) MORPHOLOGY COMMENT (test code=MOC) PLATELET ESTIMATE (test code=PLTEST) PLATELET MORPHOLOGY (test code=PLTMORPH) CBC W/AUTO [id number] 10:53:00* Test Item Value Reference Range Comments WHITE BLOOD CELL (test code=WBC) 6.2 K/mm3 4.5-12.5 RED BLOOD CELL (test code=RBC) 4.38 mill/mm3 3.7-5.2 HEMOGLOBIN (test code=HGB) 10.3 gram/dL 11.5-15.5 HEMATOCRIT (test code=HCT) 36.5 % 36.0-46.0 MEAN CELL VOLUME (test code=MCV) 83.3 fL 80-98 MEAN CELL HGB (test code=MCH) 23.5 picogram 27.0-33.0 MEAN CELL HGB CONCETRATION (test code=MCHC) 28.2 gram/dL 33.0-36.0 RED CELL DISTRIBUTION WIDTH (test code=RDW) 21.7 % 11.6-16.2 RED CELL DISTRIBUTION WIDTH SD (test code=RDW-SD) 64.2 fL 37.0-51.0 PLATELET COUNT (test code=PLT) 280 K/mm3 150-450 MEAN PLATELET VOLUME (test code=MPV) 11.8 fL 6.7-11.0 NEUTROPHIL % (test code=NT%) 65.9 % 39.0-69.0 IMMATURE GRANULOCYTE % (test code=IG%) 0.3 % 0.0-5.0 LYMPHOCYTE % (test code=LY%) 20.5 % 25.0-55.0 MONOCYTE % (test code=MO%) 8.1 % 0.0-10.0 EOSINOPHIL % (test code=EO%) 4.2 % 0.0-5.0 BASOPHIL % (test code=BA%) 1.0 % 0.0-1.0 NUCLEATED RBC % (test code=NRBC%) 0.0 % 0-0 NEUTROPHIL # (test code=NT#) 4.06 K/mm3 1.8-7.7 IMMATURE GRANULOCYTE # (test code=IG#) 0.02 x10 3/uL 0-0.03 LYMPHOCYTE # (test code=LY#) 1.26 K/mm3 1.0-5.0 MONOCYTE # (test code=MO#) 0.50 K/mm3 0-0.8 EOSINOPHIL # (test code=EO#) 0.26 K/mm3 0.0-0.5 BASOPHIL # (test code=BA#) 0.06 K/mm3 0.0-0.2 NUCLEATED RBC # (test code=NRBC#) 0.00 K/mm3 0.0-0.1 MANUAL DIFF REQUIRED (test code=MDIFF) NO, ONLY SCAN NEEDED DIFFERENTIAL [id number] 10:53:00* Test Item Value Reference Range Comments STAIN ACCEPTABILITY (test code=STN ACCEPTABLE) CABOT RINGS (test code=CAB) MORPHOLOGY COMMENT (test code=MOC) PLATELET ESTIMATE (test code=PLTEST) PLATELET MORPHOLOGY (test code=PLTMORPH) CBC W/AUTO [id number] 10:53:00* Test Item Value Reference Range Comments WHITE BLOOD CELL (test code=WBC) 6.2 K/mm3 4.5-12.5 RED BLOOD CELL (test code=RBC) 4.38 mill/mm3 3.7-5.2 HEMOGLOBIN (test code=HGB) 10.3 gram/dL 11.5-15.5 HEMATOCRIT (test code=HCT) 36.5 % 36.0-46.0 MEAN CELL VOLUME (test code=MCV) 83.3 fL 80-98 MEAN CELL HGB (test code=MCH) 23.5 picogram 27.0-33.0 MEAN CELL HGB CONCETRATION (test code=MCHC) 28.2 gram/dL 33.0-36.0 RED CELL DISTRIBUTION WIDTH (test code=RDW) 21.7 % 11.6-16.2 RED CELL DISTRIBUTION WIDTH SD (test code=RDW-SD) 64.2 fL 37.0-51.0 PLATELET COUNT (test code=PLT) 280 K/mm3 150-450 MEAN PLATELET VOLUME (test code=MPV) 11.8 fL 6.7-11.0 NEUTROPHIL % (test code=NT%) 65.9 % 39.0-69.0 IMMATURE GRANULOCYTE % (test code=IG%) 0.3 % 0.0-5.0 LYMPHOCYTE % (test code=LY%) 20.5 % 25.0-55.0 MONOCYTE % (test code=MO%) 8.1 % 0.0-10.0 EOSINOPHIL % (test code=EO%) 4.2 % 0.0-5.0 BASOPHIL % (test code=BA%) 1.0 % 0.0-1.0 NUCLEATED RBC % (test code=NRBC%) 0.0 % 0-0 NEUTROPHIL # (test code=NT#) 4.06 K/mm3 1.8-7.7 IMMATURE GRANULOCYTE # (test code=IG#) 0.02 x10 3/uL 0-0.03 LYMPHOCYTE # (test code=LY#) 1.26 K/mm3 1.0-5.0 MONOCYTE # (test code=MO#) 0.50 K/mm3 0-0.8 EOSINOPHIL # (test code=EO#) 0.26 K/mm3 0.0-0.5 BASOPHIL # (test code=BA#) 0.06 K/mm3 0.0-0.2 NUCLEATED RBC # (test code=NRBC#) 0.00 K/mm3 0.0-0.1 MANUAL DIFF REQUIRED (test code=MDIFF) NO, ONLY SCAN NEEDED DIFFERENTIAL [id number] 10:53:00* Test Item Value Reference Range Comments STAIN ACCEPTABILITY (test code=STN ACCEPTABLE) MORPHOLOGY COMMENT (test code=MOC) PLATELET ESTIMATE (test code=PLTEST) PLATELET MORPHOLOGY (test code=PLTMORPH) CBC W/AUTO [id number] 10:53:00* Test Item Value Reference Range Comments WHITE BLOOD CELL (test code=WBC) 6.2 K/mm3 4.5-12.5 RED BLOOD CELL (test code=RBC) 4.38 mill/mm3 3.7-5.2 HEMOGLOBIN (test code=HGB) 10.3 gram/dL 11.5-15.5 HEMATOCRIT (test code=HCT) 36.5 % 36.0-46.0 MEAN CELL VOLUME (test code=MCV) 83.3 fL 80-98 MEAN CELL HGB (test code=MCH) 23.5 picogram 27.0-33.0 MEAN CELL HGB CONCETRATION (test code=MCHC) 28.2 gram/dL 33.0-36.0 RED CELL DISTRIBUTION WIDTH (test code=RDW) 21.7 % 11.6-16.2 RED CELL DISTRIBUTION WIDTH SD (test code=RDW-SD) 64.2 fL 37.0-51.0 PLATELET COUNT (test code=PLT) 280 K/mm3 150-450 MEAN PLATELET VOLUME (test code=MPV) 11.8 fL 6.7-11.0 NEUTROPHIL % (test code=NT%) 65.9 % 39.0-69.0 IMMATURE GRANULOCYTE % (test code=IG%) 0.3 % 0.0-5.0 LYMPHOCYTE % (test code=LY%) 20.5 % 25.0-55.0 MONOCYTE % (test code=MO%) 8.1 % 0.0-10.0 EOSINOPHIL % (test code=EO%) 4.2 % 0.0-5.0 BASOPHIL % (test code=BA%) 1.0 % 0.0-1.0 NUCLEATED RBC % (test code=NRBC%) 0.0 % 0-0 NEUTROPHIL # (test code=NT#) 4.06 K/mm3 1.8-7.7 IMMATURE GRANULOCYTE # (test code=IG#) 0.02 x10 3/uL 0-0.03 LYMPHOCYTE # (test code=LY#) 1.26 K/mm3 1.0-5.0 MONOCYTE # (test code=MO#) 0.50 K/mm3 0-0.8 EOSINOPHIL # (test code=EO#) 0.26 K/mm3 0.0-0.5 BASOPHIL # (test code=BA#) 0.06 K/mm3 0.0-0.2 NUCLEATED RBC # (test code=NRBC#) 0.00 K/mm3 0.0-0.1 MANUAL DIFF REQUIRED (test code=MDIFF) NO, ONLY SCAN NEEDED DIFFERENTIAL [id number] 10:53:00* Test Item Value Reference Range Comments STAIN ACCEPTABILITY (test code=STN ACCEPTABLE) CABOT RINGS (test code=CAB) MORPHOLOGY COMMENT (test code=MOC) PLATELET ESTIMATE (test code=PLTEST) PLATELET MORPHOLOGY (test code=PLTMORPH) [id number] 14:19:00 RUN DATE: 06/23/18 [employer] PAGE 1 RUN TIME: 1420 Specimen Inqui ry RUN USER: INTERFACE PATIENT: STEVE CRYSTAL ACCT #: V [id number] LOC: NEEL U #: [id number] AGE/SX: 83/F ROOM: [facility] RE06/19/18REG DR: Craig Robles MD : 39 BED: A DIS: 06/22/18 STATUS: DIS IN TLOC: SPEC #: [id number] RECD: 06/22/18 [facility] [id number] TANA: 06/21/18- DR: Kami Garg MD ENTERED: 06/22/18 SP TYPE: STOMACH OTHR DR: Santo Silverman i, MD ORDERED: GROSS COPIES TO: Santo Joel MD [address] [place] [address] Kami Garg MD [address] [place] [address] PROCEDURES: GROSS (06/23/18-131 4) TISSUES: ESOPHAGUS, NOS - DISTAL BX CLINICAL HISTORY COL LECTION DATE: 06/21/18 ANEMIA FINAL DIAGNOSIS Distal esophagus, b iopsy: MIXED SQUAMOUS AND GLANDULAR EPITHELIUM WITH ELONGATION OF SQUAMOU S PAPILLAE AND RARE INTRAEPITHELIAL LYMPHOCYTES NO INCREASED NUM VILLA OF INTRAEPITHELIAL EOSINOPHILS PATCHY MILD CHRONIC INFLAMMATION IN GL ANDULAR MUCOSA NO GOBLET CELL METAPLASIA PRESENT NEGATIVE FOR DYSP LASIA AND MALIGNANCY RRB/dung D [address] CONTINUED ON NEXT PAGE RUN DATE: 06/23/18 [facility] PAGE 2 RUN TIME: 1420 Specimen Inquiry RUN USER: INTERFACE SPEC #: [id number] PATIENT: STEVE CRYSTAL #[id number] (Contin ued) MACROSCOPIC The specimen is received in formalin, labeled with the patient's name, identified as "distal esophagus", and consis ts of khan biopsy tissue measuring 0.2 cm, submitted for histologic evaluation . GROSS PERFORMED AT [facility] [address] [place] [address] (p)[phone] MICROSCOPIC All of the stains, including any controls performed, stain a ppropriately. MICROSCOPIC PERFORMED AT [facility] [address] [place] [address] (p)[phone] PERFORMING SITE Diagnosis performed at: [facility] PATRIC gandhi [address] [place] [address] Signed SIGNATURE ON FILE Jim García MD 06/23/18 1419 END OF REPORT HGB [id number] 12:16:00* Test Item Value Reference Range Comments HEMOGLOBIN (test code=HGB) 8.5 gram/dL 11.5-15.5 HEMATOCRIT (test code=HCT) 30.9 % 36.0-46.0 CBC W/AUTO [id number] 11:25:00* Test Item Value Reference Range Comments WHITE BLOOD CELL (test code=WBC) 8.5 K/mm3 4.5-12.5 RED BLOOD CELL (test code=RBC) 3.90 mill/mm3 3.7-5.2 HEMOGLOBIN (test code=HGB) 8.8 gram/dL 11.5-15.5 HEMATOCRIT (test code=HCT) 30.7 % 36.0-46.0 MEAN CELL VOLUME (test code=MCV) 78.7 fL 80-98 MEAN CELL HGB (test code=MCH) 22.6 picogram 27.0-33.0 MEAN CELL HGB CONCETRATION (test code=MCHC) 28.7 gram/dL 33.0-36.0 RED CELL DISTRIBUTION WIDTH (test code=RDW) 16.4 % 11.6-16.2 RED CELL DISTRIBUTION WIDTH SD (test code=RDW-SD) 46.8 fL 37.0-51.0 PLATELET COUNT (test code=PLT) 310 K/mm3 150-450 MEAN PLATELET VOLUME (test code=MPV) 12.6 fL 6.7-11.0 NEUTROPHIL % (test code=NT%) 59.2 % 39.0-69.0 IMMATURE GRANULOCYTE % (test code=IG%) 0.2 % 0.0-5.0 LYMPHOCYTE % (test code=LY%) 27.1 % 25.0-55.0 MONOCYTE % (test code=MO%) 9.4 % 0.0-10.0 EOSINOPHIL % (test code=EO%) 3.3 % 0.0-5.0 BASOPHIL % (test code=BA%) 0.8 % 0.0-1.0 NUCLEATED RBC % (test code=NRBC%) 0.0 % 0-0 NEUTROPHIL # (test code=NT#) 5.03 K/mm3 1.8-7.7 IMMATURE GRANULOCYTE # (test code=IG#) 0.02 x10 3/uL 0-0.03 LYMPHOCYTE # (test code=LY#) 2.31 K/mm3 1.0-5.0 MONOCYTE # (test code=MO#) 0.80 K/mm3 0-0.8 EOSINOPHIL # (test code=EO#) 0.28 K/mm3 0.0-0.5 BASOPHIL # (test code=BA#) 0.07 K/mm3 0.0-0.2 NUCLEATED RBC # (test code=NRBC#) 0.00 K/mm3 0.0-0.1 MANUAL DIFF REQUIRED (test code=MDIFF) NO, ONLY SCAN NEEDED DIFFERENTIAL [id number] 11:25:00* Test Item Value Reference Range Comments STAIN ACCEPTABILITY (test code=STN ACCEPTABLE) STAIN ACCEPTABLE POIKILOCYTOSIS (test code=POIK) 1+ ANISOCYTOSIS (test code=ANISO) 1+ MICROCYTOSIS (test code=MICR) 1+ ELLIPTOCYTES (test code=ELL) 1+ PLATELET ESTIMATE (test code=PLTEST) ADEQUATE PLATELET MORPHOLOGY (test code=PLTMORPH) NORMAL CBC W/AUTO [id number] 10:46:00* Test Item Value Reference Range Comments WHITE BLOOD CELL (test code=WBC) 8.5 K/mm3 4.5-12.5 RED BLOOD CELL (test code=RBC) 3.90 mill/mm3 3.7-5.2 HEMOGLOBIN (test code=HGB) 8.8 gram/dL 11.5-15.5 HEMATOCRIT (test code=HCT) 30.7 % 36.0-46.0 MEAN CELL VOLUME (test code=MCV) 78.7 fL 80-98 MEAN CELL HGB (test code=MCH) 22.6 picogram 27.0-33.0 MEAN CELL HGB CONCETRATION (test code=MCHC) 28.7 gram/dL 33.0-36.0 RED CELL DISTRIBUTION WIDTH (test code=RDW) 16.4 % 11.6-16.2 RED CELL DISTRIBUTION WIDTH SD (test code=RDW-SD) 46.8 fL 37.0-51.0 PLATELET COUNT (test code=PLT) 310 K/mm3 150-450 MEAN PLATELET VOLUME (test code=MPV) 12.6 fL 6.7-11.0 NEUTROPHIL % (test code=NT%) 59.2 % 39.0-69.0 IMMATURE GRANULOCYTE % (test code=IG%) 0.2 % 0.0-5.0 LYMPHOCYTE % (test code=LY%) 27.1 % 25.0-55.0 MONOCYTE % (test code=MO%) 9.4 % 0.0-10.0 EOSINOPHIL % (test code=EO%) 3.3 % 0.0-5.0 BASOPHIL % (test code=BA%) 0.8 % 0.0-1.0 NUCLEATED RBC % (test code=NRBC%) 0.0 % 0-0 NEUTROPHIL # (test code=NT#) 5.03 K/mm3 1.8-7.7 IMMATURE GRANULOCYTE # (test code=IG#) 0.02 x10 3/uL 0-0.03 LYMPHOCYTE # (test code=LY#) 2.31 K/mm3 1.0-5.0 MONOCYTE # (test code=MO#) 0.80 K/mm3 0-0.8 EOSINOPHIL # (test code=EO#) 0.28 K/mm3 0.0-0.5 BASOPHIL # (test code=BA#) 0.07 K/mm3 0.0-0.2 NUCLEATED RBC # (test code=NRBC#) 0.00 K/mm3 0.0-0.1 MANUAL DIFF REQUIRED (test code=MDIFF) NO, ONLY SCAN NEEDED DIFFERENTIAL [id number] 10:46:00* Test Item Value Reference Range Comments STAIN ACCEPTABILITY (test code=STN ACCEPTABLE) CABOT RINGS (test code=CAB) MORPHOLOGY COMMENT (test code=MOC) PLATELET ESTIMATE (test code=PLTEST) PLATELET MORPHOLOGY (test code=PLTMORPH) CBC W/AUTO [id number] 10:46:00* Test Item Value Reference Range Comments WHITE BLOOD CELL (test code=WBC) 8.5 K/mm3 4.5-12.5 RED BLOOD CELL (test code=RBC) 3.90 mill/mm3 3.7-5.2 HEMOGLOBIN (test code=HGB) 8.8 gram/dL 11.5-15.5 HEMATOCRIT (test code=HCT) 30.7 % 36.0-46.0 MEAN CELL VOLUME (test code=MCV) 78.7 fL 80-98 MEAN CELL HGB (test code=MCH) 22.6 picogram 27.0-33.0 MEAN CELL HGB CONCETRATION (test code=MCHC) 28.7 gram/dL 33.0-36.0 RED CELL DISTRIBUTION WIDTH (test code=RDW) 16.4 % 11.6-16.2 RED CELL DISTRIBUTION WIDTH SD (test code=RDW-SD) 46.8 fL 37.0-51.0 PLATELET COUNT (test code=PLT) 310 K/mm3 150-450 MEAN PLATELET VOLUME (test code=MPV) 12.6 fL 6.7-11.0 NEUTROPHIL % (test code=NT%) 59.2 % 39.0-69.0 IMMATURE GRANULOCYTE % (test code=IG%) 0.2 % 0.0-5.0 LYMPHOCYTE % (test code=LY%) 27.1 % 25.0-55.0 MONOCYTE % (test code=MO%) 9.4 % 0.0-10.0 EOSINOPHIL % (test code=EO%) 3.3 % 0.0-5.0 BASOPHIL % (test code=BA%) 0.8 % 0.0-1.0 NUCLEATED RBC % (test code=NRBC%) 0.0 % 0-0 NEUTROPHIL # (test code=NT#) 5.03 K/mm3 1.8-7.7 IMMATURE GRANULOCYTE # (test code=IG#) 0.02 x10 3/uL 0-0.03 LYMPHOCYTE # (test code=LY#) 2.31 K/mm3 1.0-5.0 MONOCYTE # (test code=MO#) 0.80 K/mm3 0-0.8 EOSINOPHIL # (test code=EO#) 0.28 K/mm3 0.0-0.5 BASOPHIL # (test code=BA#) 0.07 K/mm3 0.0-0.2 NUCLEATED RBC # (test code=NRBC#) 0.00 K/mm3 0.0-0.1 MANUAL DIFF REQUIRED (test code=MDIFF) NO, ONLY SCAN NEEDED DIFFERENTIAL [id number] 10:46:00* Test Item Value Reference Range Comments STAIN ACCEPTABILITY (test code=STN ACCEPTABLE) CABOT RINGS (test code=CAB) MORPHOLOGY COMMENT (test code=MOC) PLATELET ESTIMATE (test code=PLTEST) PLATELET MORPHOLOGY (test code=PLTMORPH) CBC W/AUTO [id number] 10:46:00* Test Item Value Reference Range Comments WHITE BLOOD CELL (test code=WBC) 8.5 K/mm3 4.5-12.5 RED BLOOD CELL (test code=RBC) 3.90 mill/mm3 3.7-5.2 HEMOGLOBIN (test code=HGB) 8.8 gram/dL 11.5-15.5 HEMATOCRIT (test code=HCT) 30.7 % 36.0-46.0 MEAN CELL VOLUME (test code=MCV) 78.7 fL 80-98 MEAN CELL HGB (test code=MCH) 22.6 picogram 27.0-33.0 MEAN CELL HGB CONCETRATION (test code=MCHC) 28.7 gram/dL 33.0-36.0 RED CELL DISTRIBUTION WIDTH (test code=RDW) 16.4 % 11.6-16.2 RED CELL DISTRIBUTION WIDTH SD (test code=RDW-SD) 46.8 fL 37.0-51.0 PLATELET COUNT (test code=PLT) 310 K/mm3 150-450 MEAN PLATELET VOLUME (test code=MPV) 12.6 fL 6.7-11.0 NEUTROPHIL % (test code=NT%) 59.2 % 39.0-69.0 IMMATURE GRANULOCYTE % (test code=IG%) 0.2 % 0.0-5.0 LYMPHOCYTE % (test code=LY%) 27.1 % 25.0-55.0 MONOCYTE % (test code=MO%) 9.4 % 0.0-10.0 EOSINOPHIL % (test code=EO%) 3.3 % 0.0-5.0 BASOPHIL % (test code=BA%) 0.8 % 0.0-1.0 NUCLEATED RBC % (test code=NRBC%) 0.0 % 0-0 NEUTROPHIL # (test code=NT#) 5.03 K/mm3 1.8-7.7 IMMATURE GRANULOCYTE # (test code=IG#) 0.02 x10 3/uL 0-0.03 LYMPHOCYTE # (test code=LY#) 2.31 K/mm3 1.0-5.0 MONOCYTE # (test code=MO#) 0.80 K/mm3 0-0.8 EOSINOPHIL # (test code=EO#) 0.28 K/mm3 0.0-0.5 BASOPHIL # (test code=BA#) 0.07 K/mm3 0.0-0.2 NUCLEATED RBC # (test code=NRBC#) 0.00 K/mm3 0.0-0.1 MANUAL DIFF REQUIRED (test code=MDIFF) NO, ONLY SCAN NEEDED DIFFERENTIAL [id number] 10:46:00* Test Item Value Reference Range Comments STAIN ACCEPTABILITY (test code=STN ACCEPTABLE) MORPHOLOGY COMMENT (test code=MOC) PLATELET ESTIMATE (test code=PLTEST) PLATELET MORPHOLOGY (test code=PLTMORPH) CBC W/AUTO [id number] 10:46:00* Test Item Value Reference Range Comments WHITE BLOOD CELL (test code=WBC) 8.5 K/mm3 4.5-12.5 RED BLOOD CELL (test code=RBC) 3.90 mill/mm3 3.7-5.2 HEMOGLOBIN (test code=HGB) 8.8 gram/dL 11.5-15.5 HEMATOCRIT (test code=HCT) 30.7 % 36.0-46.0 MEAN CELL VOLUME (test code=MCV) 78.7 fL 80-98 MEAN CELL HGB (test code=MCH) 22.6 picogram 27.0-33.0 MEAN CELL HGB CONCETRATION (test code=MCHC) 28.7 gram/dL 33.0-36.0 RED CELL DISTRIBUTION WIDTH (test code=RDW) 16.4 % 11.6-16.2 RED CELL DISTRIBUTION WIDTH SD (test code=RDW-SD) 46.8 fL 37.0-51.0 PLATELET COUNT (test code=PLT) 310 K/mm3 150-450 MEAN PLATELET VOLUME (test code=MPV) 12.6 fL 6.7-11.0 NEUTROPHIL % (test code=NT%) 59.2 % 39.0-69.0 IMMATURE GRANULOCYTE % (test code=IG%) 0.2 % 0.0-5.0 LYMPHOCYTE % (test code=LY%) 27.1 % 25.0-55.0 MONOCYTE % (test code=MO%) 9.4 % 0.0-10.0 EOSINOPHIL % (test code=EO%) 3.3 % 0.0-5.0 BASOPHIL % (test code=BA%) 0.8 % 0.0-1.0 NUCLEATED RBC % (test code=NRBC%) 0.0 % 0-0 NEUTROPHIL # (test code=NT#) 5.03 K/mm3 1.8-7.7 IMMATURE GRANULOCYTE # (test code=IG#) 0.02 x10 3/uL 0-0.03 LYMPHOCYTE # (test code=LY#) 2.31 K/mm3 1.0-5.0 MONOCYTE # (test code=MO#) 0.80 K/mm3 0-0.8 EOSINOPHIL # (test code=EO#) 0.28 K/mm3 0.0-0.5 BASOPHIL # (test code=BA#) 0.07 K/mm3 0.0-0.2 NUCLEATED RBC # (test code=NRBC#) 0.00 K/mm3 0.0-0.1 MANUAL DIFF REQUIRED (test code=MDIFF) NO, ONLY SCAN NEEDED DIFFERENTIAL [id number] 10:46:00* Test Item Value Reference Range Comments STAIN ACCEPTABILITY (test code=STN ACCEPTABLE) CABOT RINGS (test code=CAB) MORPHOLOGY COMMENT (test code=MOC) PLATELET ESTIMATE (test code=PLTEST) PLATELET MORPHOLOGY (test code=PLTMORPH) [id number] 10:38:00* Test Item Value Reference Range Comments TROPONIN-I (test code=TROPI) 0.015 ng/mL 0-0.045 USE YOUSIF PER [place] LAW () @V.LAB.SP3 06/19/18 1020COMMENTS TO ORE DRESSING ENGINEER: COL LECT 3 HOURS AFTER PREVIOUS SAMPLELIPID PROFILE (CORONARY RISK)2018-06-19 10:31:00* Test Item Value Reference Range Comments TRIGLYCERIDES (test code=TRIG) 112 mg/dL 20-150 CHOLESTEROL (test code=CHOL) 155 mg/dL 0-200 CHOLESTEROL/HDL RATIO (test code=CHOLHDL) 1.0 RATIO 0-4.9 RISK ASSOCIATED WITH CHOL/HDL RATIOS: Risk Male Female1/2 AVERAGE 3.43 3.27AVERAGE 4.97 4.442X AVERAGE 9.55 7.053X AVERAGE 23.39 11.04 REFERENCE VALUE IS RELATED TO RISK LEVELS ASRECOMMENDED BY THE [facility]. HEART, LUNG, AND BLOOD INST. HDL CHOLESTEROL (test code=HDL) 82 mg/dL 40-60 LIPOPROTEIN LDL (test code=LDL) 58 mg/dL 100-129 Reference Interval: mg/dL mmol/L Optimal <100 <2.6Near/above optimal 100-129 2.6- 3.3Borderline High 130-159 3.4-4.1High 160-189 4.1-4.9Very High >=190 >=4.9=========This LDL result is a direct measurement.========= SPECIMEN COMMENTS: add to labsBASIC METABOLIC [id number] 06:02:00* Test Item Value Reference Range Comments SODIUM (test code=NA) 143 mmol/L 136-145 POTASSIUM (test code=K) 3.5 mmol/L 3.5-5.1 CHLORIDE (test code=CL) 109.0 mmol/L 98-107 CARBON DIOXIDE (test code=CO2) 24.0 mmol/L 21-32 ANION GAP (test code=GAP) 13.5 10-20 GLUCOSE (test code=GLU) 82 mg/dL 74-106 BLOOD UREA NITROGEN (test code=BUN) 15 mg/dL 7-18 GLOMERULAR FILTRATION RATE (test code=GFR) > 60 mL/min >=60 Estimated GFR by using Modified MDRD formula.Chronic kidney disease is defined as either kidney damageor GFR <60 mL/min/1.73 m2 for >3 months. CREATININE (test code=CREAT) 0.80 mg/dL 0.55-1.02 Note change in reference range due to change in reagent. BUN/CREATININE RATIO (test code=BUN/CREA) 18.8 10-20 CALCIUM (test code=CA) 8.4 mg/dL 8.5-10.1 BASIC METABOLIC [id number] 05:59:00* Test Item Value Reference Range Comments SODIUM (test code=NA) 143 mmol/L 136-145 POTASSIUM (test code=K) 3.5 mmol/L 3.5-5.1 CHLORIDE (test code=CL) 109.0 mmol/L 98-107 CARBON DIOXIDE (test code=CO2) mmol/L 21-32 ANION GAP (test code=GAP) 10-20 GLUCOSE (test code=GLU) mg/dL 74-106 BLOOD UREA NITROGEN (test code=BUN) mg/dL 7-18 GLOMERULAR FILTRATION RATE (test code=GFR) mL/min >=60 CREATININE (test code=CREAT) mg/dL 0.55-1.02 BUN/CREATININE RATIO (test code=BUN/CREA) 10-20 CALCIUM (test code=CA) mg/dL 8.5-10.1 [id number] 02:05:00* Test Item Value Reference Range Comments TROPONIN-I (test code=TROPI) 0.015 ng/mL 0-0.045 COMMENTS TO ORE DRESSING ENGINEER: COLLECT 3 HOURS AFTER PREVIOUS SAMPLELACTIC DEHYDROGENASE(LDH)2018-06-18 20:33:00* Test Item Value Reference Range Comments LACTIC DEHYDROGENASE(LDH) (test code=LDH) 286 IUnit/L 84-246 FE W/TOTAL IRON BINDING CAP.2018-06-18 20:33:00* Test Item Value Reference Range Comments SERUM IRON (test code=IRON) 16 ug/dL 50-175 TOTAL IRON BINDING CAPACITY (test code=TIBC) 426 mcg/dL 250-450 IRON SATURATION (test code=FESAT) 3.76 % 13-45 VITAMIN [id number] 20:33:00* Test Item Value Reference Range Comments VITAMIN B12 (test code=VITB12) 812 pg/mL 193-986 FOLIC [id number] 20:33:00* Test Item Value Reference Range Comments FOLIC ACID (test code=FOL) 10.2 ng/mL 3.10-17.50 URINALYSIS [id number] 19:59:00* Test Item Value Reference Range Comments UA COLOR (test code=COLU) LIGHT YELLOW YELLOW UA APPEARANCE (test code=APPU) CLEAR CLEAR UA GLUCOSE DIPSTICK (test code=DGLUU) NEGATIVE mg/dL NEGATIVE UA BILIRUBIN DIPSTICK (test code=BILU) NEGATIVE mg/dL NEGATIVE UA KETONE DIPSTICK (test code=KETU) NEGATIVE mg/dL NEGATIVE UA SPECIFIC GRAVITY (test code=SGU) 1.014 1.001-1.035 UA BLOOD DIPSTICK (test code=SEVEN) Negative mg/dL NEGATIVE UA PH DIPSTICK (test code=AIMEE) 6.0 5.0-8.0 UA PROTEIN DIPSTICK (test code=PROU) NEGATIVE mg/dL NEGATIVE UA UROBILINIOGEN DIPSTICK (test code=URO) NEGATIVE mg/dL NEGATIVE UA NITRITE DIPSTICK (test code=JOYA) NEGATIVE NEGATIVE UA LEUKOCYTE ESTERASE W REFLEX (test code=LEUUR) NEGATIVE Viv/uL NEGATIVE UA WBC (test code=WBCU) 0-5 per HPF 0-5 UA RBC (test code=RBCU) 0-2 #/HPF 0-5 UA EPITHELIAL CELLS (test code=EPIU) FEW per HPF FEW UA BACTERIA (test code=BACU) NONE SEEN #/HPF NONE UA HYALINE CAST (test code=HYALU) 0-2 #/LPF 0-5 UA MUCUS (test code=MUCU) FEW #/LPF FEW Urine Source? Clean CatchURINALYSIS [id number] 19:55:00* Test Item Value Reference Range Comments UA COLOR (test code=COLU) LIGHT YELLOW YELLOW UA APPEARANCE (test code=APPU) CLEAR CLEAR UA GLUCOSE DIPSTICK (test code=DGLUU) NEGATIVE mg/dL NEGATIVE UA BILIRUBIN DIPSTICK (test code=BILU) NEGATIVE mg/dL NEGATIVE UA KETONE DIPSTICK (test code=KETU) NEGATIVE mg/dL NEGATIVE UA SPECIFIC GRAVITY (test code=SGU) 1.014 1.001-1.035 UA BLOOD DIPSTICK (test code=SEVEN) Negative mg/dL NEGATIVE UA PH DIPSTICK (test code=AIMEE) 6.0 5.0-8.0 UA PROTEIN DIPSTICK (test code=PROU) NEGATIVE mg/dL NEGATIVE UA UROBILINIOGEN DIPSTICK (test code=URO) NEGATIVE mg/dL NEGATIVE UA NITRITE DIPSTICK (test code=JOYA) NEGATIVE NEGATIVE UA LEUKOCYTE ESTERASE W REFLEX (test code=LEUUR) NEGATIVE Viv/uL NEGATIVE UA WBC (test code=WBCU) per HPF 0-5 Urine Source? Clean CatchRETICULOCYTE [id number] 19:55:00* Test Item Value Reference Range Comments RETICULOCYTE COUNT (test code=RETICT) 1.4 % 0.5-2.0 RETIC COUNT ABSOLUTE (test code=RET#) 0.050 mill/mm3 0.016-0.095 IMMATURE RETICULOCYTE FRACTION (test code=IRF) 6.4 % 3.0-15.9 Values above normal range indicate an increase in RBCcellular response from bone marrow. RETICULOCYTE HGB EQUIVALENT (test code=RETHE) 17.5 pg 28.2-35.7 RET-He is a direct estimate of recent functionalavailability of iron in the cell, therefore, decreasedRET-He is indicative of iron deficiency. CBC W/AUTO [id number] 19:02:00* Test Item Value Reference Range Comments WHITE BLOOD CELL (test code=WBC) 9.3 K/mm3 4.5-12.5 RED BLOOD CELL (test code=RBC) 3.52 mill/mm3 3.7-5.2 HEMOGLOBIN (test code=HGB) 7.5 gram/dL 11.5-15.5 HEMATOCRIT (test code=HCT) 27.1 % 36.0-46.0 MEAN CELL VOLUME (test code=MCV) 77.0 fL 80-98 MEAN CELL HGB (test code=MCH) 21.3 picogram 27.0-33.0 MEAN CELL HGB CONCETRATION (test code=MCHC) 27.7 gram/dL 33.0-36.0 RED CELL DISTRIBUTION WIDTH (test code=RDW) 15.3 % 11.6-16.2 RED CELL DISTRIBUTION WIDTH SD (test code=RDW-SD) 42.5 fL 37.0-51.0 PLATELET COUNT (test code=PLT) 355 K/mm3 150-450 MEAN PLATELET VOLUME (test code=MPV) 11.1 fL 6.7-11.0 NEUTROPHIL % (test code=NT%) 76.5 % 39.0-69.0 IMMATURE GRANULOCYTE % (test code=IG%) 1.4 % 0.0-5.0 LYMPHOCYTE % (test code=LY%) 10.8 % 25.0-55.0 MONOCYTE % (test code=MO%) 8.2 % 0.0-10.0 EOSINOPHIL % (test code=EO%) 2.3 % 0.0-5.0 BASOPHIL % (test code=BA%) 0.8 % 0.0-1.0 NUCLEATED RBC % (test code=NRBC%) 0.0 % 0-0 NEUTROPHIL # (test code=NT#) 7.11 K/mm3 1.8-7.7 IMMATURE GRANULOCYTE # (test code=IG#) 0.13 x10 3/uL 0-0.03 LYMPHOCYTE # (test code=LY#) 1.00 K/mm3 1.0-5.0 MONOCYTE # (test code=MO#) 0.76 K/mm3 0-0.8 EOSINOPHIL # (test code=EO#) 0.21 K/mm3 0.0-0.5 BASOPHIL # (test code=BA#) 0.07 K/mm3 0.0-0.2 NUCLEATED RBC # (test code=NRBC#) 0.00 K/mm3 0.0-0.1 MANUAL DIFF REQUIRED (test code=MDIFF) NO, ONLY SCAN NEEDED DIFFERENTIAL [id number] 19:02:00* Test Item Value Reference Range Comments STAIN ACCEPTABILITY (test code=STN ACCEPTABLE) STAIN ACCEPTABLE POIKILOCYTOSIS (test code=POIK) 1+ ANISOCYTOSIS (test code=ANISO) 1+ ELLIPTOCYTES (test code=ELL) 1+ SCHISTOCYTES (test code=NETO) 1+ PLATELET ESTIMATE (test code=PLTEST) ADEQUATE PLATELET MORPHOLOGY (test code=PLTMORPH) SIZE VARIABLE BASIC METABOLIC [id number] 18:53:00* Test Item Value Reference Range Comments SODIUM (test code=NA) 141 mmol/L 136-145 POTASSIUM (test code=K) 3.2 mmol/L 3.5-5.1 CHLORIDE (test code=CL) 107.0 mmol/L 98-107 CARBON DIOXIDE (test code=CO2) 27.0 mmol/L 21-32 ANION GAP (test code=GAP) 10.2 10-20 GLUCOSE (test code=GLU) 132 mg/dL 74-106 BLOOD UREA NITROGEN (test code=BUN) 16 mg/dL 7-18 GLOMERULAR FILTRATION RATE (test code=GFR) 53 mL/min >=60 Estimated GFR by using Modified MDRD formula.Chronic kidney disease is defined as either kidney damageor GFR <60 mL/min/1.73 m2 for >3 months. CREATININE (test code=CREAT) 1.00 mg/dL 0.55-1.02 Note change in reference range due to change in reagent. BUN/CREATININE RATIO (test code=BUN/CREA) 16.0 10-20 CALCIUM (test code=CA) 8.7 mg/dL 8.5-10.1 HEPATIC FUNCTION [id number] 18:53:00* Test Item Value Reference Range Comments TOTAL PROTEIN (test code=PROT) 7.5 gram/dL 6.4-8.2 ALBUMIN (test code=ALB) 3.7 g/dL 3.4-5.0 GLOBULIN (test code=GLOB) 3.8 gram/dL 2.7-4.2 ALBUMIN/GLOBULIN RATIO (test code=A/G) 1.0 0.75-1.50 BILIRUBIN TOTAL (test code=BILT) 0.20 mg/dL 0.0-1.0 BILIRUBIN DIRECT (test code=BILD) 0.08 mg/dL 0.0-0.20 SGOT/AST (test code=AST) 21 IUnit/L 15-37 SGPT/ALT (test code=ALT) 14 IUnit/L 12-78 ALKALINE PHOSPHATASE TOTAL (test code=ALKP) 95 IUnit/L 45-117 Note change in reference range due to change in reagent. [id number] 18:53:00* Test Item Value Reference Range Comments MAGNESIUM (test code=MAG) 1.8 mg/dL 1.8-2.4 THYROID STIMULATING [id number] 18:53:00* Test Item Value Reference Range Comments THYROID STIMULATING HORMONE (test code=TSH) 2.010 uIU/mL 0.36-3.74 TSH REFERENCE RANGES: EUTHYROID: 0.35 - 4.3 mIU/mL HYPO : > 5.5 mIU/mL HYPER : < 0.35 mIU/mL [id number] 18:53:00* Test Item Value Reference Range Comments TROPONIN-I (test code=TROPI) <0.015 ng/mL 0-0.045 BASIC METABOLIC [id number] 18:34:00* Test Item Value Reference Range Comments SODIUM (test code=NA) 141 mmol/L 136-145 POTASSIUM (test code=K) 3.2 mmol/L 3.5-5.1 CHLORIDE (test code=CL) 107.0 mmol/L 98-107 CARBON DIOXIDE (test code=CO2) mmol/L 21-32 ANION GAP (test code=GAP) 10-20 GLUCOSE (test code=GLU) mg/dL 74-106 BLOOD UREA NITROGEN (test code=BUN) mg/dL 7-18 GLOMERULAR FILTRATION RATE (test code=GFR) mL/min >=60 CREATININE (test code=CREAT) mg/dL 0.55-1.02 BUN/CREATININE RATIO (test code=BUN/CREA) 10-20 CALCIUM (test code=CA) mg/dL 8.5-10.1 HEPATIC FUNCTION [id number] 18:34:00* Test Item Value Reference Range Comments TOTAL PROTEIN (test code=PROT) gram/dL 6.4-8.2 ALBUMIN (test code=ALB) g/dL 3.4-5.0 GLOBULIN (test code=GLOB) gram/dL 2.7-4.2 ALBUMIN/GLOBULIN RATIO (test code=A/G) 0.75-1.50 BILIRUBIN TOTAL (test code=BILT) mg/dL 0.0-1.0 BILIRUBIN DIRECT (test code=BILD) mg/dL 0.0-0.20 SGOT/AST (test code=AST) IUnit/L 15-37 SGPT/ALT (test code=ALT) IUnit/L 12-78 ALKALINE PHOSPHATASE TOTAL (test code=ALKP) IUnit/L 45-117 [id number] 18:34:00* Test Item Value Reference Range Comments MAGNESIUM (test code=MAG) mg/dL 1.8-2.4 THYROID STIMULATING [id number] 18:34:00* Test Item Value Reference Range Comments THYROID STIMULATING HORMONE (test code=TSH) uIU/mL 0.36-3.74 [id number] 18:34:00* Test Item Value Reference Range Comments TROPONIN-I (test code=TROPI) ng/mL 0-0.045 PROTHROMBIN [id number] 18:21:00* Test Item Value Reference Range Comments PROTHROMBIN TIME PATIENT (test code=PTP) 13.2 seconds 9.0-14.0 INTERNATIONAL NORMAL RATIO (test code=INR) 1.1 0.8-1.2 The therapeutic range for oral anticoagulant therapy formost indications is an international normalized ratio (INR)of between 2.0 and 3.0. The recommended therapeutic INRrange for various clinical situations is listed below: Clinical Situation INR range Pulmonary e mbolism treatment (2.0-3.0)Venous thrombosis treatmentVenous thrombosis prophylaxis (high risk surgery)Prevention of systemic embolism from: Acute myocardial infarction Valvular heart disease Atrial fibrillation Mechanical prosthetic heart valves (2.5-3.5) IS PATIENT ON ANTICOAGULANTS? NCBC W/AUTO [id number] 18:15:00* Test Item Value Reference Range Comments WHITE BLOOD CELL (test code=WBC) 9.3 K/mm3 4.5-12.5 RED BLOOD CELL (test code=RBC) 3.52 mill/mm3 3.7-5.2 HEMOGLOBIN (test code=HGB) 7.5 gram/dL 11.5-15.5 HEMATOCRIT (test code=HCT) 27.1 % 36.0-46.0 MEAN CELL VOLUME (test code=MCV) 77.0 fL 80-98 MEAN CELL HGB (test code=MCH) 21.3 picogram 27.0-33.0 MEAN CELL HGB CONCETRATION (test code=MCHC) 27.7 gram/dL 33.0-36.0 RED CELL DISTRIBUTION WIDTH (test code=RDW) 15.3 % 11.6-16.2 RED CELL DISTRIBUTION WIDTH SD (test code=RDW-SD) 42.5 fL 37.0-51.0 PLATELET COUNT (test code=PLT) 355 K/mm3 150-450 MEAN PLATELET VOLUME (test code=MPV) 11.1 fL 6.7-11.0 NEUTROPHIL % (test code=NT%) 76.5 % 39.0-69.0 IMMATURE GRANULOCYTE % (test code=IG%) 1.4 % 0.0-5.0 LYMPHOCYTE % (test code=LY%) 10.8 % 25.0-55.0 MONOCYTE % (test code=MO%) 8.2 % 0.0-10.0 EOSINOPHIL % (test code=EO%) 2.3 % 0.0-5.0 BASOPHIL % (test code=BA%) 0.8 % 0.0-1.0 NUCLEATED RBC % (test code=NRBC%) 0.0 % 0-0 NEUTROPHIL # (test code=NT#) 7.11 K/mm3 1.8-7.7 IMMATURE GRANULOCYTE # (test code=IG#) 0.13 x10 3/uL 0-0.03 LYMPHOCYTE # (test code=LY#) 1.00 K/mm3 1.0-5.0 MONOCYTE # (test code=MO#) 0.76 K/mm3 0-0.8 EOSINOPHIL # (test code=EO#) 0.21 K/mm3 0.0-0.5 BASOPHIL # (test code=BA#) 0.07 K/mm3 0.0-0.2 NUCLEATED RBC # (test code=NRBC#) 0.00 K/mm3 0.0-0.1 MANUAL DIFF REQUIRED (test code=MDIFF) NO, ONLY SCAN NEEDED DIFFERENTIAL [id number] 18:15:00* Test Item Value Reference Range Comments STAIN ACCEPTABILITY (test code=STN ACCEPTABLE) CABOT RINGS (test code=CAB) MORPHOLOGY COMMENT (test code=MOC) PLATELET ESTIMATE (test code=PLTEST) PLATELET MORPHOLOGY (test code=PLTMORPH) CBC W/AUTO [id number] 18:15:00* Test Item Value Reference Range Comments WHITE BLOOD CELL (test code=WBC) 9.3 K/mm3 4.5-12.5 RED BLOOD CELL (test code=RBC) 3.52 mill/mm3 3.7-5.2 HEMOGLOBIN (test code=HGB) 7.5 gram/dL 11.5-15.5 HEMATOCRIT (test code=HCT) 27.1 % 36.0-46.0 MEAN CELL VOLUME (test code=MCV) 77.0 fL 80-98 MEAN CELL HGB (test code=MCH) 21.3 picogram 27.0-33.0 MEAN CELL HGB CONCETRATION (test code=MCHC) 27.7 gram/dL 33.0-36.0 RED CELL DISTRIBUTION WIDTH (test code=RDW) 15.3 % 11.6-16.2 RED CELL DISTRIBUTION WIDTH SD (test code=RDW-SD) 42.5 fL 37.0-51.0 PLATELET COUNT (test code=PLT) 355 K/mm3 150-450 MEAN PLATELET VOLUME (test code=MPV) 11.1 fL 6.7-11.0 NEUTROPHIL % (test code=NT%) 76.5 % 39.0-69.0 IMMATURE GRANULOCYTE % (test code=IG%) 1.4 % 0.0-5.0 LYMPHOCYTE % (test code=LY%) 10.8 % 25.0-55.0 MONOCYTE % (test code=MO%) 8.2 % 0.0-10.0 EOSINOPHIL % (test code=EO%) 2.3 % 0.0-5.0 BASOPHIL % (test code=BA%) 0.8 % 0.0-1.0 NUCLEATED RBC % (test code=NRBC%) 0.0 % 0-0 NEUTROPHIL # (test code=NT#) 7.11 K/mm3 1.8-7.7 IMMATURE GRANULOCYTE # (test code=IG#) 0.13 x10 3/uL 0-0.03 LYMPHOCYTE # (test code=LY#) 1.00 K/mm3 1.0-5.0 MONOCYTE # (test code=MO#) 0.76 K/mm3 0-0.8 EOSINOPHIL # (test code=EO#) 0.21 K/mm3 0.0-0.5 BASOPHIL # (test code=BA#) 0.07 K/mm3 0.0-0.2 NUCLEATED RBC # (test code=NRBC#) 0.00 K/mm3 0.0-0.1 MANUAL DIFF REQUIRED (test code=MDIFF) NO, ONLY SCAN NEEDED DIFFERENTIAL [id number] 18:15:00* Test Item Value Reference Range Comments STAIN ACCEPTABILITY (test code=STN ACCEPTABLE) CABOT RINGS (test code=CAB) MORPHOLOGY COMMENT (test code=MOC) PLATELET ESTIMATE (test code=PLTEST) PLATELET MORPHOLOGY (test code=PLTMORPH) CBC W/AUTO [id number] 18:15:00* Test Item Value Reference Range Comments WHITE BLOOD CELL (test code=WBC) 9.3 K/mm3 4.5-12.5 RED BLOOD CELL (test code=RBC) 3.52 mill/mm3 3.7-5.2 HEMOGLOBIN (test code=HGB) 7.5 gram/dL 11.5-15.5 HEMATOCRIT (test code=HCT) 27.1 % 36.0-46.0 MEAN CELL VOLUME (test code=MCV) 77.0 fL 80-98 MEAN CELL HGB (test code=MCH) 21.3 picogram 27.0-33.0 MEAN CELL HGB CONCETRATION (test code=MCHC) 27.7 gram/dL 33.0-36.0 RED CELL DISTRIBUTION WIDTH (test code=RDW) 15.3 % 11.6-16.2 RED CELL DISTRIBUTION WIDTH SD (test code=RDW-SD) 42.5 fL 37.0-51.0 PLATELET COUNT (test code=PLT) 355 K/mm3 150-450 MEAN PLATELET VOLUME (test code=MPV) 11.1 fL 6.7-11.0 NEUTROPHIL % (test code=NT%) 76.5 % 39.0-69.0 IMMATURE GRANULOCYTE % (test code=IG%) 1.4 % 0.0-5.0 LYMPHOCYTE % (test code=LY%) 10.8 % 25.0-55.0 MONOCYTE % (test code=MO%) 8.2 % 0.0-10.0 EOSINOPHIL % (test code=EO%) 2.3 % 0.0-5.0 BASOPHIL % (test code=BA%) 0.8 % 0.0-1.0 NUCLEATED RBC % (test code=NRBC%) 0.0 % 0-0 NEUTROPHIL # (test code=NT#) 7.11 K/mm3 1.8-7.7 IMMATURE GRANULOCYTE # (test code=IG#) 0.13 x10 3/uL 0-0.03 LYMPHOCYTE # (test code=LY#) 1.00 K/mm3 1.0-5.0 MONOCYTE # (test code=MO#) 0.76 K/mm3 0-0.8 EOSINOPHIL # (test code=EO#) 0.21 K/mm3 0.0-0.5 BASOPHIL # (test code=BA#) 0.07 K/mm3 0.0-0.2 NUCLEATED RBC # (test code=NRBC#) 0.00 K/mm3 0.0-0.1 MANUAL DIFF REQUIRED (test code=MDIFF) NO, ONLY SCAN NEEDED DIFFERENTIAL [id number] 18:15:00* Test Item Value Reference Range Comments STAIN ACCEPTABILITY (test code=STN ACCEPTABLE) MORPHOLOGY COMMENT (test code=MOC) PLATELET ESTIMATE (test code=PLTEST) PLATELET MORPHOLOGY (test code=PLTMORPH) CBC W/AUTO [id number] 18:15:00* Test Item Value Reference Range Comments WHITE BLOOD CELL (test code=WBC) 9.3 K/mm3 4.5-12.5 RED BLOOD CELL (test code=RBC) 3.52 mill/mm3 3.7-5.2 HEMOGLOBIN (test code=HGB) 7.5 gram/dL 11.5-15.5 HEMATOCRIT (test code=HCT) 27.1 % 36.0-46.0 MEAN CELL VOLUME (test code=MCV) 77.0 fL 80-98 MEAN CELL HGB (test code=MCH) 21.3 picogram 27.0-33.0 MEAN CELL HGB CONCETRATION (test code=MCHC) 27.7 gram/dL 33.0-36.0 RED CELL DISTRIBUTION WIDTH (test code=RDW) 15.3 % 11.6-16.2 RED CELL DISTRIBUTION WIDTH SD (test code=RDW-SD) 42.5 fL 37.0-51.0 PLATELET COUNT (test code=PLT) 355 K/mm3 150-450 MEAN PLATELET VOLUME (test code=MPV) 11.1 fL 6.7-11.0 NEUTROPHIL % (test code=NT%) 76.5 % 39.0-69.0 IMMATURE GRANULOCYTE % (test code=IG%) 1.4 % 0.0-5.0 LYMPHOCYTE % (test code=LY%) 10.8 % 25.0-55.0 MONOCYTE % (test code=MO%) 8.2 % 0.0-10.0 EOSINOPHIL % (test code=EO%) 2.3 % 0.0-5.0 BASOPHIL % (test code=BA%) 0.8 % 0.0-1.0 NUCLEATED RBC % (test code=NRBC%) 0.0 % 0-0 NEUTROPHIL # (test code=NT#) 7.11 K/mm3 1.8-7.7 IMMATURE GRANULOCYTE # (test code=IG#) 0.13 x10 3/uL 0-0.03 LYMPHOCYTE # (test code=LY#) 1.00 K/mm3 1.0-5.0 MONOCYTE # (test code=MO#) 0.76 K/mm3 0-0.8 EOSINOPHIL # (test code=EO#) 0.21 K/mm3 0.0-0.5 BASOPHIL # (test code=BA#) 0.07 K/mm3 0.0-0.2 NUCLEATED RBC # (test code=NRBC#) 0.00 K/mm3 0.0-0.1 MANUAL DIFF REQUIRED (test code=MDIFF) NO, ONLY SCAN NEEDED DIFFERENTIAL [id number] 18:15:00* Test Item Value Reference Range Comments STAIN ACCEPTABILITY (test code=STN ACCEPTABLE) CABOT RINGS (test code=CAB) MORPHOLOGY COMMENT (test code=MOC) PLATELET ESTIMATE (test code=PLTEST) PLATELET MORPHOLOGY (test code=PLTMORPH) - CT HEAD/BRAIN W/O [id number] 17:55:00 Name: STEVE CRYSTAL [facility] : 1935 Age/S: 83 / F [address] Unit #: [id number] Loc: [place] [address] Phys: CUBA PRINGLE MD Acct: [id number] Dis Date: Status: REG ER PHONE #: [phone] Exam Date: 06/18/2018 7722 FAX #: [phone] Reason: Altered Mental Status EXAMS: CPT CODE: [id number] CT HEAD/BRAIN W/O CONT 12560 HISTORY: Altered Mental Status TECHNIQUE: Noncontrast 2.[address] of the head. Examination acquired within 24 hours of arrival. Automated exposure control for dose reduction; DLP: 755 mGy-cm. COMPARISON: 08/24/17 FINDINGS: No acute hemorrhage. No intracranial mass, mass effect, or midline shift. No CT evidence of acute infarct. Chronic bilateral parietal and occipital infarcts. Chronic left basal ganglia and right thalamic lacunar infarcts. Chronic small vessel infarct of the right cerebellar hemisphere. Severe periventricular chronic microvascular ischemic changes. Moderate parenchymal atrophy. No hydrocephalus. No extra-axial fluid collection. Atherosclerotic vascular calcification of the carotid siphons. Small left sphenoid sinus mucosal thickening. Bilateral ethmoidectomy, bilateral maxillary antrostomy, and left sphenoidotomy. Mastoid air cells and middle ear cavities are clear. Bilateral lens implants. Calvarium and skull base are intact. IMPRESSION: No intracranial process. Multifocal chronic ischemic sequela. at 1755 Reported and signed by: Radha Staples D.O. CC: Craig Robles MD; CUBA PRINGLE MD Technologist:Emilie ZarateRT(R),CT CTDI: DLP: Trnscb Date/Time: 06/18/2018 (175) [email or web address] Orig Print D/T: S: 06/18/2018 (175) CTDI: DLP: PAGE 1 Signed Report - XR CHEST 1 [id number] 17:31:00 FAX: Craig Erickson MD [phone] [place]: St: PRE FAX: CUBA PRINGLE MD Name: STEVE CRYSTAL [facility] : 1935 Age/S: 83/F [address] [facility] Unit #: [id number] Loc: V.[facility]ANCA [place]oz [address] Phys: CUBA PRINGLE MD Acct: [id number] Dis Date: Status: PRE ER PHONE #: [phone] Exam Date: 06/18/2018 1723 FAX #: [phone] Reason: Altered Mental Status EXAMS: CPT CODE: [id number] XR CHEST 1 V 17838 HISTORY: Altered Mental Status TECHNIQUE: AP chest x- ray COMPARISON: 08/25/17 FINDINGS: No airspace consolidation or pleural effusion. Left basilar subsegmental ate lectasis. Cardiomegaly. Sternotomy/CABG. Mediastinal silhouette is unremar kable. Degenerative changes of the spine and shoulders. Right distal clavi ezequiel excision. IMPRESSION: No radiographic evid ence of acute cardiopulmonary process. at 1731 Reported and signed by: Radha Staples D.O. CC: Craig Robles MD; CUBA PRINGLE MD Technologist: VARINDER HULL, RT(R); Sia Ann Trnscrd Date/Time/By: 06/18/2018 (1734) : By: [email or web address] Orig Print D/T: S: 06/18/2018 (5167) PAGE 1 Signed Report
[2019-04-09] MEDS ORDERED: SODIUM CHLORIDE 0.9% 500ML 500 ML IV ONE (09:00)
[2019-04-09] MEDS ORDERED: PANTOPRAZOLE 40 MG 10ML VIAL IV NR (09:00)
[2019-04-09 09:03] LABS: BASOPHILS % 0.5 % (0.0-1.0); EOSINOPHILS # (AUTO) 0.2 (0.0-0.4); EOSINOPHILS % 4.6 % (0.0-6.0); LYMPHOCYTES % 23.9 % (18.0-39.1); MEAN CORPUSCULAR HEMOGLOBIN 15.2 pg (28-32); MEAN CORPUSCULAR HGB CONC 24.5 g/dL (31-35); MEAN CORPUSCULAR VOLUME 62.2 fL (81-99); MONOCYTES # (AUTO) 0.6 (0.2-0.8); MONOCYTES % 13.3 % (4.4-11.3); NEUTROPHILS # (AUTO) 2.5 (2.1-6.9); NEUTROPHILS % 57.5 % (38.7-80.0); PLATELET COUNT 378 x10e3/uL (140-360); RED CELL DISTRIBUTION WIDTH 21.4 % (11.7-14.4)
[2019-04-09 09:14] LABS: HEMOGLOBIN 3.5 g/dL (12.0-16.0)
[2019-04-09 09:15] LABS: HEMATOCRIT 14.3 % (34.2-44.1)
[2019-04-09 09:16] LABS: INR 1.09; PROTHROMBIN TIME 14.6 seconds (11.9-14.5)
[2019-04-09 09:17] LABS: PARTIAL THROMBOPLASTIN TIME 28.3 seconds (23.8-35.5)
[2019-04-09 09:23] LABS: ALBUMIN 3.5 g/dL (3.5-5.0); ALBUMIN/GLOBULIN RATIO 1.3 (0.8-2.0); ANION GAP 14.5 mmol/L (8-16); CALCIUM 8.9 mg/dL (8.4-10.2); CREATININE, SERUM 0.98 mg/dL (0.57-1.11); POTASSIUM 3.5 mmol/L (3.5-5.1)
[2019-04-09 09:29] LABS: CREATINE KINASE MB 0.7 ng/mL (0-5.0)
[2019-04-09] MEDS ORDERED: FUROSEMIDE INJ 10 MG/ML 2 ML VIAL IV PRN (09:30)
[2019-04-09] MEDS ORDERED: SODIUM CHLORIDE 0.9% 250ML 250 ML IV ONE (09:30)
[2019-04-09] MEDS ORDERED: OCTREOTIDE ACETATE 0.05 MG/ML AMP IV STA (10:14)
[2019-04-09] MEDS ORDERED: SODIUM CHLORIDE 0.9% 1000ML 1,000 ML IV ONE (10:15)
[2019-04-09 10:28] LABS: EOSINOPHILS % (MANUAL) 4 % (0-7); MONOCYTES % (MANUAL) 11 % (3.4-9.0); NEUTROPHILS % (MANUAL) 60 % (40-74)
[2019-04-09 10:29] LABS: LYMPHOCYTES % (MANUAL) 25 % (19-48); PLATELET ESTIMATE ADEQUATE
[2019-04-09 10:30] LABS: HYPOCHROMASIA MODERATE; MICROCYTOSIS MODERATE; OVALOCYTES FEW; PLATELET MORPHOLOGY COMMENT NORMAL; RBC MORPHOLOGY COMMENT ABNORMAL; TEAR DROP CELLS FEW
[2019-04-09] MEDS ORDERED: OCTREOTIDE ACETATE 500 MCG in SODIUM CHLORIDE 0.9% 250ML 249 ML SQ SCH (10:30)
--- NOTE | 2019-04-09 11:20 | Diagnostic Imaging Report ---
EXAMINATION: CHEST SINGLE (PORTABLE) INDICATION: ^sob ^[id number] ^[id number] COMPARISON: None FINDINGS: AP view TUBES and LINES: None. LUNGS: Lungs are well inflated. Mild central pulmonary vascular congestion. Bibasilar atelectasis. PLEURA: No pleural effusion or pneumothorax. HEART AND MEDIASTINUM: Prominent left ventricle. Status post CABG. BONES AND SOFT TISSUES: Intact median sternotomy wires. Soft tissues are unremarkable. UPPER ABDOMEN: No free air under the diaphragm. IMPRESSION: Mild central pulmonary vascular congestion. Signed by: Dr. Zeynep Castaneda M.D. on 04/09/2019 11:18 AM
[2019-04-09] MEDS ORDERED: IPRATROPIUM BROMIDE 0.02% 2.5 ML NEB NEB PRN (13:15)
[2019-04-09] MEDS ORDERED: ACETAMINOPHEN 325 MG TAB PO PRN (14:45)
[2019-04-09] MEDS ORDERED: CISATRACURIUM BESYLATE 100 MG in SODIUM CHLORIDE 0.9% 100 ML 50 ML IV PRN (17:00)
[2019-04-09] MEDS ORDERED: FENTANYL CITRATE INJ 2000 MCG in SODIUM CHLORIDE 0.9% 210 ML IV PRN (17:00)
[2019-04-09] MEDS: DOCUSATE SODIUM 100 MG CAP PO SCH (17:17)
--- NOTE | 2019-04-09 18:18 | Consultation ---
DATE OF CONSULTATION: 04/09/2019 Consult Note HISTORY OF PRESENT ILLNESS: This is an 83 years old lady, who apparently has a history of CVA and has been on Eliquis, presented to the hospital because of feeling weak and also having some black stool. The patient denies any abdominal pain, nausea, or vomiting. She was found to have hemoglobin of 3.5 with an MCV of 62. She said that she had an EGD and colonoscopy apparently back in the summer, which was supposedly "okay." PAST MEDICAL PROBLEMS: Significant for history of CVA for which she has been on Eliquis. ALLERGIES: NONE. SOCIAL HISTORY: Denies any alcohol use. FAMILY HISTORY: Noncontributory. REVIEW OF SYSTEMS: Denies any chest pain or shortness of breath. Denies any dysphagia, odynophagia. Denies any dysuria, hematuria, or any kind of syncopal episode. PHYSICAL EXAMINATION: GENERAL: Awake, alert, appears to be stable. Not in acute distress at this point. VITAL SIGNS: Afebrile, currently without vital signs. HEAD, EYES, EARS, NOSE, AND THROAT: Normocephalic. Sclerae are anicteric. NECK: Supple. HEART: Regular. ABDOMEN: Soft. There is no tenderness at this point. EXTREMITIES: No clubbing or cyanosis. LABORATORY VALUES: WBC of 4.36, hemoglobin 3.5, hematocrit 14.3, MCV 62. PT/INR is normal and BUN and creatinine are normal. IMPRESSION: 1. Gastrointestinal bleed with melena. Currently, she is presenting with abdominal pain, nausea, vomiting. 2. History of cerebrovascular accident, on Eliquis. She actually took Eliquis this morning. RECOMMENDATIONS: Continue proton pump inhibitors and also octreotide at this point. Transfuse bright red blood cells. Follow labs. We will proceed with EGD for further follows and probably on Wednesday and we need to hold the Eliquis for now. Escobar Vigil MD DHD/MODL /[id number] cc: Craig Robles MD
--- NOTE | 2019-04-09 18:30 | NUR ---
First of 4 units blood completed, patient sitting up in bed, watching television, laughing, family at bedside.
[2019-04-09 18:34] LABS: % IRON SATURATION 3 % (15-50); IRON 13 ug/dL (50-170); TOTAL IRON BINDING CAPACITY 459 ug/dL (261-478); TRANSFERRIN 328 mg/dL (180-382)
--- NOTE | 2019-04-09 19:02 | NUR ---
WALKING ROUNDS PERFORMED, RECEIVED PT LAYING SEMI [place] SIN BED, AAOX1, RR EVEN AND NON-LABORED, ON ROOM AIR. NO S/SX OF DISTRESS NOTED. LEFT PT LAYING SEMI FOWLERS IN BED, BED IN LOW LOCKED POSITION, SIDE RAILS UPX2, CALL LIGHT AND PHONE WITHIN REACH.
--- NOTE | 2019-04-09 20:29 | NUR ---
SPOKE WITH MD HERNANDEZ CONCERNING SANDOSTATIN DRIP AND SECOND IV NEEDED FOR TRANSFUSION OF BLOOD AND DRIP. FAMILY AND PATIENT VERY CONCERNED ABOUT SECOND STICK, PATIENT IN BED WRINGING HANDS VERY ANXIOUS AND SAYING "I DONT WANT TO BE STUCK" DISCUSSED CARE WITH MD HERNANDEZ, OK TO D/C SANDOSTATIN AND CONTINUE PROTONIX 40MG Q12H. DISCUSSED POC WITH PATIENT AND PATIENTS AND DAUGHTER.
[2019-04-09] MEDS: PANTOPRAZOLE 40 MG 10ML VIAL IV SCH (21:40)
[2019-04-09] MEDS: ATORVASTATIN 20 MG TAB PO SCH (21:45)
--- NOTE | 2019-04-09 21:58 | History and Physical ---
Patient of Dr. Craig Rivero, Dr. Joel, Dr. Pride. HISTORY OF PRESENT ILLNESS: A charming, but unfortunate 83-year-old woman with history of multi-infarct dementia related to paroxysmal atrial fibrillation, chronic obstructive pulmonary disease, severe esophagitis in the past, gastroesophageal reflux, hiatal hernia, had been lost to followup for approximately 10 months. She had seen Dr. Rivero recently. Family had noted dark stool over the last week. The outside lab had difficulty drawing the blood, however, the Home Health nurse was able to draw the blood and her hemoglobin was 3.5. She was directed by the nurse to go to the emergency room. She has a history of coronary artery disease, bypass surgery and stents, carotid disease, paroxysmal atrial fibrillation with multiple infarcts. She has been on hospice in the past, but this was reversed and she wishes to go home, but her family has convinced her to stay to be transfused. She has a remote lung cancer in addition to her carotid surgery. She has subsequently had coronary stents. Worked as a secretary receptionist. Born in [place]. Ex-smoker. ALLERGIES: TO CODEINE, IODINE, PENICILLIN, AND ADHESIVE TAPE. PAST MEDICAL HISTORY: Had frequent urinary tract infections in the past. PAST SURGICAL HISTORY: Carotid surgery, lung cancer in 2010. Bypass in 1991, carotid surgery. MEDICATIONS: She has been on: 1. Lipitor 40. 2. Advair, which she has not been taking. 3. Colace. 4. B12. 5. Benazepril. 6. Eliquis 2.5 once a day. 7. Pepcid. 8. Incruse Ellipta. 9. DuoNeb. 10. Losartan. 11. Namenda. 12. Omeprazole. 13. Protonix. 14. ProAir inhaler. 15. Sertraline 25. 16. Carafate. 17. Bentyl. 18. She has had Pneumovax in the past. She has a history of lung cancer, B12 deficiency, chronic eosinophilia, restless legs syndrome, PE in the past, remote hip fractures. SOCIAL HISTORY: Quit smoking in 1991; PHYSICAL EXAMINATION: GENERAL: This is a well-developed slight white female being pale. VITAL SIGNS: Temperature 98, pulse 74, respirations 18, blood pressure 116/47. HEAD: Normocephalic, atraumatic. NECK: Trachea midline. LUNGS: Diminished breath sounds, but clear. HEART: Regular rhythm. ABDOMEN: Nontender. EXTREMITIES: Nonedematous. LABORATORY DATA: Hemoglobin on admission was 3.5, hematocrit 14.3. Dr. Vigil had seen the patient and she agrees to see her sales operations manager. We will hold Eliquis. Resume antidepressant if she will allow or renew Aricept if she will allow this. Code DNR status that she has requested, home soon. We will hold Eliquis at this time. Thank you for this kind referral. MD BRINDA Balderas/MODL /[id number]
--- NOTE | 2019-04-09 22:00 | NUR ---
PT TOLERATING BLOOD TRANSFUSION, NO S/SX OF REACTION. BLOOD TRANSFUSION INCREASED TO 125 ML/HR.
[2019-04-10] VITALS (13 sets, daily range): BP systolic 131–168; BP diastolic 65–97
--- NOTE | 2019-04-10 00:35 | NUR ---
PT TOLERATING BLOOD TRANSFUSION, NO S/SX OF REACTION. BLOOD TRANSFUSION INCREASED TO 125 ML/HR.
--- NOTE | 2019-04-10 04:05 | NUR ---
PT TOLERATING BLOOD TRANSFUSION, NO S/SX OF REACTION. BLOOD TRANSFUSION INCREASED TO 125 ML/HR.
--- NOTE | 2019-04-10 07:46 | NUR ---
patient spouse contacted nursing office to make a complaint about being dirty when arrived. according to night nurse and tech, nurse had been in the room a lot of the night giving blood and had conversed with the patient that the patient told nurse that she was continent. the nurse and tech informed me that they knew she was dirty and were gathering supplies to clean patient when spouse arrived at an unfortunate time. spoke at length with and assured him I would communicate with staff about the needs of patient and told him to call me for any further concerns. I will round on the patient frequently to ease family anxiety.
[2019-04-10] MEDS: DONEPEZIL HCL 5 MG TAB PO SCH (08:37)
[2019-04-10] MEDS: SERTRALINE HCL 50 MG TAB PO SCH (08:37)
[2019-04-10] MEDS: CYANOCOBALAMIN 1,000 MCG TAB PO SCH (08:37)
[2019-04-10] MEDS: PANTOPRAZOLE 40 MG 10ML VIAL IV SCH ×2 (08:37→21:28)
[2019-04-10] MEDS: DOCUSATE SODIUM 100 MG CAP PO SCH ×2 (08:37→17:00)
[2019-04-10 09:26] LABS: BASOPHILS # (AUTO) 0.1 (0.0-0.1); BASOPHILS % 0.9 % (0.0-1.0); EOSINOPHILS # (AUTO) 0.2 (0.0-0.4); EOSINOPHILS % 3.4 % (0.0-6.0); HEMATOCRIT 30.8 % (34.2-44.1); HEMOGLOBIN 9.6 g/dL (12.0-16.0); LYMPHOCYTES # (AUTO) 0.7 (1.0-3.2); LYMPHOCYTES % 10.4 % (18.0-39.1); MEAN CORPUSCULAR HEMOGLOBIN 23.5 pg (28-32); MEAN CORPUSCULAR HGB CONC 31.2 g/dL (31-35); MEAN CORPUSCULAR VOLUME 75.3 fL (81-99); MONOCYTES # (AUTO) 0.9 (0.2-0.8); MONOCYTES % 13.5 % (4.4-11.3); NEUTROPHILS # (AUTO) 4.6 (2.1-6.9); NEUTROPHILS % 70.7 % (38.7-80.0); PLATELET COUNT 281 x10e3/uL (140-360); RED BLOOD COUNT 4.09 x10e6/uL (3.6-5.1); RED CELL DISTRIBUTION WIDTH 26.2 % (11.7-14.4)
[2019-04-10 09:48] LABS: ANION GAP 11.7 mmol/L (8-16); BLOOD UREA NITROGEN 14 mg/dL (7-26); BUN/CREATININE RATIO 17 (6-25); CALCIUM 8.4 mg/dL (8.4-10.2); CARBON DIOXIDE 22 mmol/L (22-29); CHLORIDE 104 mmol/L (98-107); CREATININE, SERUM 0.83 mg/dL (0.57-1.11); EST GLOMERULAR FILTRATION RATE > 60 ML/MIN (60-); GLUCOSE 127 mg/dL (74-118); POTASSIUM 3.7 mmol/L (3.5-5.1); SODIUM 134 mmol/L (136-145)
[2019-04-10] MEDS ORDERED: FUROSEMIDE INJ 10 MG/ML 2 ML VIAL IV PRN (10:15)
[2019-04-10] MEDS: AMLODIPINE BESYLATE 5 MG TAB PO SCH (10:18)
[2019-04-10 10:26] LABS: CREATINE KINASE MB 1.6 ng/mL (0-5.0)
[2019-04-10 10:38] LABS: CLARITY,URINE SL CLOUDY (CLEAR); COLOR,URINE YELLOW (YELLOW)
[2019-04-10 10:39] LABS: BILIRUBIN,URINE NEGATIVE (NEGATIVE); KETONES,URINE NEGATIVE (NEGATIVE); LEUKOCYTE ESTERASE ,URINE SMALL (NEGATIVE); NITRITE,URINE NEGATIVE (NEGATIVE); PROTEIN,URINE DIPSTICK NEGATIVE (NEGATIVE); URINE UROBILINOGEN 0.2 mg/dL (0.2 - 1)
[2019-04-10 10:40] LABS: BACTERIA,URINE MANY /HPF; EPITHELIAL CELLS,URINE FEW /LPF; RBC,URINE 0-5 /HPF (0-5)
[2019-04-10] MEDS: IRON SUCROSE 100 MG in SODIUM CHLORIDE 0.9% 100 ML 100 ML IV SCH (11:00)
[2019-04-10 11:18] LABS: PLATELET ESTIMATE ADEQUATE
[2019-04-10 11:21] LABS: POLYCHROMASIA FEW; SCHISTOCYTES FEW
[2019-04-10 11:22] LABS: TEAR DROP CELLS FEW
[2019-04-10 11:24] LABS: HYPOCHROMASIA SLIGHT; POIKILOCYTOSIS SLIGHT
[2019-04-10 11:25] LABS: ANISOCYTOSIS MODERATE
[2019-04-10 11:26] LABS: MICROCYTOSIS MODE; PLATELET MORPHOLOGY COMMENT FEW LARGE
[2019-04-10] MEDS ORDERED: SODIUM CHLORIDE 0.9% 250ML 250 ML ONE (11:56)
--- NOTE | 2019-04-10 12:48 | Consultation ---
DATE OF CONSULTATION: 04/10/2019 REASON FOR CONSULTATION: CAD, PVD history. CHIEF COMPLAINT: GI bleed, weakness. HISTORY OF PRESENT ILLNESS: This is an 83-year-old female with history of CAD status post CABG in 1991, PCI to LAD in 2001 with left CEA, COPD on home oxygen, PVD status post left upper lobe lobectomy for lung cancer, paroxysmal atrial fibrillation, PE 2013, and dementia. The patient presents to the [facility] ER after having blood work done and was showing her hemoglobin of 3, was advised to go to the ER for further evaluation. Cardiology consulted given the patient's cardiac history. Of note, the patient was at one point on Coumadin therapy, had been managed by her primary care physician, was switched over to Eliquis therapy. The patient is seen in room, pale-appearing. The patient reports weakness for some time. However, there is a sitter with the patient in which she reports the patient has been weak for the past 2 months. No reports of chest pain or shortness of breath reported. Main complaint is fatigue and weakness. PAST MEDICAL HISTORY: CAD, status post CABG in 1991, PCI to LAD in 2001, left CEA, COPD on home oxygen, PVD, lung cancer status post left lobe lobectomy, lupus, history of PE, history of paroxysmal atrial fibrillation on OAC therapy Eliquis, hypertension, hyperlipidemia, and dementia. PAST SURGICAL HISTORY: Includes CABG in 1991, PCI to LAD in 2001, left carotid endarterectomy, cholecystectomy, appendectomy, tonsillectomy, bladder suspension surgery, hysterectomy, bilateral breast biopsy, and right hip surgery. SOCIAL HISTORY: She is . Quit tobacco use in . No alcohol use. Was working as a bilingual secretary. FAMILY HISTORY: Mother at age 86, history of stroke. Father at age 86, history of emphysema. HOME MEDICATIONS: Include Eliquis 5 mg twice a day, atorvastatin 40 mg daily, Micardis 20 mg daily, Lasix 20 mg daily, nitroglycerin sublingual p.r.n., albuterol inhaler p.r.n., omeprazole 40 mg b.i.d., and Advair Diskus 1 puff twice a day. ALLERGIES: INCLUDE PENICILLIN, VICODIN, AND PROCAINAMIDE. REVIEW OF SYSTEMS: GENERAL: Weakness, fatigue. No reports of fevers, night sweats, or chills. HEENT: Positive for dizziness and lightheadedness. No headaches, nose bleeds, epistaxis, sore throat, or swollen neck. RESPIRATORY: Positive for dyspnea on exertion. Positive for intermittent cough on home oxygen. No hemoptysis. CARDIOVASCULAR: No chest pain. Positive for dyspnea on exertion, intermittent palpitations. No orthopnea, PND, or lower extremity edema. GI: Positive for history of reflux, poor appetite. No constipation, diarrhea, however, positive for black tarry stools. : Positive for frequency and urgency. No dysuria or hematuria reported. MUSCULOSKELETAL: Positive for generalized joint pain and back pain. Positive for muscle weakness. VASCULAR: Denies any lower extremity edema or claudication. SKIN: No rashes or bruises reported. NEUROLOGIC: History of dementia with poor memory. PHYSICAL EXAMINATION: GENERAL: Awake, alert, and oriented x3. No acute distress, however, looks emaciated, thin, pale. HEENT: Normocephalic. Pupils are equal and reactive. Extraocular movements intact. Trachea midline. No JVD. The CEA scar noted. Oral mucosa pale-looking. HEART: Regular rate and rhythm. Soft systolic murmur heard in the right upper sternal border. PMI about 4th, 5th intercostal space. LUNGS: Bilateral breath sounds clear to auscultation with diminished airway entry. ABDOMEN: Soft, nontender, and nondistended. No organomegaly noted. EXTREMITIES: Warm. No lower extremity edema. VASCULAR: +2 bilateral radial pulses, +1 DP/PT pulses bilateral. SKIN: No sores or skin breakdown noted. Midsternal sternotomy scar noted. NEUROLOGIC: Cranial nerves 2 through 12 seem intact. ASSESSMENT AND PLAN: 1. Gastrointestinal bleed. 2. Coronary artery disease, status post coronary artery bypass grafting in 1991, status post PCI to LAD in 2001. 3. Peripheral vascular disease. 4. Carotid disease, status post left carotid endarterectomy. 5. History of paroxysmal atrial fibrillation, on OAC therapy, Eliquis. 6. Chronic obstructive pulmonary disease, on home oxygen. 7. Hypertension. 8. Hyperlipidemia. 9. History of dementia. PLAN: 1. The patient presents to the [facility] ER after noted hemoglobin of 3.5, status post 4 PRBCs. Repeat hemoglobin pending. 2. GI has been consulted. The patient on PPI therapy. 3. The patient will undergo EGD this coming Wednesday. 4. No antiplatelets or OAC therapy given severe anemia. 5. Echo to evaluate heart function and structure. 6. We will continue to monitor the patient and adjust cardiac therapy as clinical course dictates. Dictated by Craig Doyle NP Seen and examined Discussed with DR. Robles Santo Joel MD DC/JUAN /[id number] MTDDevan
--- NOTE | 2019-04-10 19:10 | NUR ---
Report given to oncoming nurse of patient's status. Patient resting in bed comfortably. Purewick in place. Side rails upx2, call light within reach, bed alarm on.
--- NOTE | 2019-04-10 19:10 | NUR ---
received patient awake, not in distress, call light within easy reach, bed alarm activated, will continue to monitor
[2019-04-10 19:43] LABS: CREATINE KINASE MB 1.9 ng/mL (0-5.0)
[2019-04-10] MEDS: ATORVASTATIN 20 MG TAB PO SCH (21:28)
[2019-04-11] VITALS (8 sets, daily range): BP systolic 131–163; BP diastolic 62–88
--- NOTE | 2019-04-11 05:00 | NUR ---
patient refused blood draw, patient educated on the importance of monitoring labs still refusing
--- NOTE | 2019-04-11 06:50 | NUR ---
bedside rounding done, patient's diaper checked by 2 RN's, its dry, purewick in place, will continue to monitor
[2019-04-11] MEDS: DONEPEZIL HCL 5 MG TAB PO SCH (09:21)
[2019-04-11] MEDS: AMLODIPINE BESYLATE 5 MG TAB PO SCH (09:21)
[2019-04-11] MEDS: DOCUSATE SODIUM 100 MG CAP PO SCH ×2 (09:21→16:30)
[2019-04-11] MEDS: SERTRALINE HCL 50 MG TAB PO SCH (09:21)
[2019-04-11] MEDS: PANTOPRAZOLE 40 MG 10ML VIAL IV SCH ×2 (09:21→20:59)
[2019-04-11] MEDS: CYANOCOBALAMIN 1,000 MCG TAB PO SCH (09:21)
[2019-04-11] MEDS: IRON SUCROSE 100 MG in SODIUM CHLORIDE 0.9% 100 ML 100 ML IV SCH (09:48)
[2019-04-11 10:07] LABS: BASOPHILS # (AUTO) 0.1 (0.0-0.1); BASOPHILS % 1.3 % (0.0-1.0); EOSINOPHILS # (AUTO) 0.3 (0.0-0.4); EOSINOPHILS % 4.5 % (0.0-6.0); HEMATOCRIT 32.6 % (34.2-44.1); HEMOGLOBIN 10.4 g/dL (12.0-16.0); LYMPHOCYTES # (AUTO) 0.8 (1.0-3.2); LYMPHOCYTES % 12.4 % (18.0-39.1); MEAN CORPUSCULAR HEMOGLOBIN 24.1 pg (28-32); MEAN CORPUSCULAR HGB CONC 31.9 g/dL (31-35); MEAN CORPUSCULAR VOLUME 75.5 fL (81-99); MONOCYTES # (AUTO) 0.6 (0.2-0.8); MONOCYTES % 10.1 % (4.4-11.3); NEUTROPHILS # (AUTO) 4.3 (2.1-6.9); NEUTROPHILS % 71.4 % (38.7-80.0); PLATELET COUNT 288 x10e3/uL (140-360); RED BLOOD COUNT 4.32 x10e6/uL (3.6-5.1); RED CELL DISTRIBUTION WIDTH 26.6 % (11.7-14.4)
--- NOTE | 2019-04-11 13:10 | NUR ---
Visit made by LB Stringer. Three Dimensional Art Instructor provided pastoral presence, prayer, hospitality, and supportive listening. Three Dimensional Art Instructor informed pt/family of the scope of [facility] and availability. MARIA LUZ ELY Three Dimensional Art Instructor Spiritual Care Department O: [phone]
[2019-04-11 13:42] LABS: ANISOCYTOSIS SLIGHT
[2019-04-11 13:46] LABS: EOSINOPHILS % (MANUAL) 3 % (0-7); LYMPHOCYTES % (MANUAL) 10 % (19-48); MONOCYTES % (MANUAL) 8 % (3.4-9.0); NEUTROPHILS % (MANUAL) 78 % (40-74)
--- NOTE | 2019-04-11 14:39 | NUR ---
Nutrition Intervention Note: RD Recommendation(s) for Physician: - Continue current diet - Recommend Ensure Pudding TID with meals for adequacy - Consider an appetite stimulant if medically appropriate - Recommend MVI with minerals once daily for adequacy - Pt meets criteria for moderate protein calorie malnutrition Nutrition reason for involvement: Nutrition Risk Trigger- MST2 RD Assessment 04/11: 83 YOF admitted for GI bleed and dark stools, pt seen today per MST2 screen. Pt with hx of dementia, sitter at bedside provided hx. Pt's sitter reports fair appetite with decreased po intake SOLAR SALES ADVISOR. Pt with 75-100% intake yesterday per chart, sitter reports poor intake for breakfast and lunch- pt very lethargic today. Sitter reports no difficulties chewing or swallowing. Pt does not like liquid supplements, refuses them at home- consider Ensure pudding. Noted pt previously on hospice per MD notes. Sitter reports UBW of 110# 4 mo ago. All questions and concerns addressed at time of visit. Will continue to monitor. Principal Problems/Diagnoses: GI bleed PMH: dementia, COPD, hyperlipidemia, severe esophagitis, GERD, hiatal hernia, CAD, CABG, lung cancer GI: LBM 04/10 Skin: intact Labs: 04/11: Na 134, Gluc 127 Meds: IV Fe, colace, vitamin B12, aricept, protonix, lipitor, lasix Ht: 64 in Wt: 114 lb BMI: 19.6 kg/m2 IBW: 120 lb Malnutrition Evaluation (04/11/18) The patient meets criteria for MODERATE protein-calorie malnutrition. Energy intake: <75% of estimated energy requirements for >7 days Weight loss: No wt loss reported, UBW of 110# 4 mo ago Fat loss: Moderate, decreased skinfold thickness Muscle loss: Moderate, interosseous depression Supporting Evidence: Fluid accumulation: none Functional Status: unable to evaluate Nutrition Prescription (Diet Order): GI Soft Estimated Nutritional Needs: calories/day (25-30 kcal/kg CBW) g protein/day (1-1.5 g pro/kg CBW) Diet Adequacy: Not meeting calorie needs, Not meeting protein needs Diet Tolerance: tolerating po Diet Education Needs Assessment: Diet education not indicated at this time. Nutrition Care Level: Mod Nutrition Diagnosis: Inadequate energy and protein intake related to dementia as evidenced by decreased po intake SOLAR SALES ADVISOR and not meeting needs. Goal: Patient will meet 75-100% of estimated needs by follow up Progress: N/A Interventions: -Fiber modified diet, Commercial beverage, Commercial food, Prescription medications, Recommended Modifications, Multivitamin/mineral supplement therapy Monitoring/Evaluation: -Modified diet, Total energy intake, Total protein intake, Prescription medication, Modified diet, weight change Signed: Kiara Murillo RD, LD, [facility]
[2019-04-11] MEDS ORDERED: ZOLOFT50 MG PO (15:12)
[2019-04-11] MEDS ORDERED: LIPITOR20 MG PO (15:12)
[2019-04-11] MEDS ORDERED: OMEPRAZOLE40 MG PO (15:12)
[2019-04-11] MEDS ORDERED: IPRATROPIU0.2 MG/1 M NEB (15:12)
[2019-04-11] MEDS ORDERED: PROT (15:12)
[2019-04-11] MEDS ORDERED: NORVASC5 MG PO (15:12)
[2019-04-11] MEDS ORDERED: COLACE100 MG PO (15:12)
[2019-04-11] MEDS ORDERED: VITAMIN B-121000 MCG PO (15:12)
[2019-04-11] MEDS ORDERED: ARICEPT5 MG PO (15:12)
[2019-04-11] MEDS ORDERED: ELIQUIS2.5 MG PO (15:15)
--- NOTE | 2019-04-11 15:17 | NUR ---
Spoke to patient and caregiver, they are unsure of the company that has her for home health. Spoke to Maddie and Christopher Franco - spouse - who states she is on service with [employer]. They would like to continue with this company. Received order from Dr. Robles. Verified with [facility] that she receives mcc and pt. Patient also has a private care manager cna at bedside as well.
--- NOTE | 2019-04-11 19:20 | NUR ---
Report given to oncoming nurse of patient's status. Family at bedside. NO s/s of acute distress noted. Side rails upx2, call light within reach, bed alarm on.
[2019-04-11] MEDS: ATORVASTATIN 20 MG TAB PO SCH (20:59)
[2019-04-12 01:08] VITALS: BP 131/62
[2019-04-12 05:26] VITALS: BP 131/63
[2019-04-12 07:28] VITALS: BP 142/67
[2019-04-12 07:38] VITALS: BP 142/67
[2019-04-12] MEDS: PANTOPRAZOLE 40 MG 10ML VIAL IV SCH (07:58)
[2019-04-12] MEDS: IRON SUCROSE 100 MG in SODIUM CHLORIDE 0.9% 100 ML 100 ML IV SCH (07:58)
[2019-04-12 08:20] LABS: BASOPHILS # (AUTO) 0.1 (0.0-0.1); EOSINOPHILS # (AUTO) 0.3 (0.0-0.4); EOSINOPHILS % 4.9 % (0.0-6.0); HEMATOCRIT 33.1 % (34.2-44.1); HEMOGLOBIN 10.1 g/dL (12.0-16.0); LYMPHOCYTES # (AUTO) 0.8 (1.0-3.2); LYMPHOCYTES % 13.2 % (18.0-39.1); MEAN CORPUSCULAR HEMOGLOBIN 23.6 pg (28-32); MEAN CORPUSCULAR HGB CONC 30.5 g/dL (31-35); MEAN CORPUSCULAR VOLUME 77.3 fL (81-99); MONOCYTES # (AUTO) 0.7 (0.2-0.8); MONOCYTES % 11.1 % (4.4-11.3); NEUTROPHILS # (AUTO) 4.4 (2.1-6.9); NEUTROPHILS % 69.5 % (38.7-80.0); PLATELET COUNT 282 x10e3/uL (140-360); RED BLOOD COUNT 4.28 x10e6/uL (3.6-5.1)
[2019-04-12 08:40] LABS: ANION GAP 13.9 mmol/L (8-16); BLOOD UREA NITROGEN 9 mg/dL (7-26); BUN/CREATININE RATIO 11 (6-25); CALCIUM 8.7 mg/dL (8.4-10.2); CARBON DIOXIDE 24 mmol/L (22-29); CHLORIDE 103 mmol/L (98-107); EST GLOMERULAR FILTRATION RATE > 60 ML/MIN (60-); GLUCOSE 89 mg/dL (74-118); SODIUM 138 mmol/L (136-145)
[2019-04-12 09:02] LABS: POTASSIUM 2.9 mmol/L (3.5-5.1)
--- NOTE | 2019-04-12 09:07 | NUR ---
aware of K 2.9. See orders
[2019-04-12] MEDS ORDERED: POTASSIUM CHLORIDE 20MEQ/100ML 200 ML IV ONE (09:15)
[2019-04-12 11:23] VITALS: BP 143/68
[2019-04-12] MEDS: AMLODIPINE BESYLATE 5 MG TAB PO SCH (12:30)
[2019-04-12] MEDS: DOCUSATE SODIUM 100 MG CAP PO SCH ×2 (12:43→16:08)
[2019-04-12] MEDS: CYANOCOBALAMIN 1,000 MCG TAB PO SCH (12:43)
[2019-04-12] MEDS: DONEPEZIL HCL 5 MG TAB PO SCH (12:43)
[2019-04-12] MEDS: SERTRALINE HCL 50 MG TAB PO SCH (12:43)
[2019-04-12] MEDS ORDERED: CARAFATE1 GM/10 ML PO (12:53)
[2019-04-12] MEDS ORDERED: SODIUM CHLORIDE 0.9% 250ML 250 ML ONE (13:51)
[2019-04-12 15:35] VITALS: BP 128/60
--- NOTE | 2019-04-12 16:22 | NUR ---
ABRADING MACHINE TENDER spoke to nurse prior to seeing patient. Patient refused treatment today. ABRADING MACHINE TENDER said an attempt would be made again tomorrow. Angelica Ward PTA/Supervising PTColten, Addendum: 04/12/19 at 1624 by Angelica Ward PTA Amended: Links added.
[2019-04-12] MEDS ORDERED: SUCRALFATE 1 GM TAB PO SCH (16:30)
--- NOTE | 2019-04-12 17:34 | NUR ---
Right EJ IV discontinued. No signs of infiltration noted. 2x2 gauze and paper tape placed. Taken via wheelchair by PCT to personal car. Accompanied by . AAOX2 to person, place. Respirations even and unlabored. Discharge instructions, rx, and all personal belongings taken with patient.
[2019-04-12] MEDS ORDERED: PROPOFOL IV EMULSION 10 MG/ML 20 ML VIAL ONE (18:28)
[2019-04-12] MEDS ORDERED: LIDOCAINE HCL 2% LOCAL INJ 5 ML SDV VIAL INJ ONE (18:28)
--- NOTE | 2019-04-13 07:39 | Discharge Summary ---
The patient with a history of severe weakness, melenic stools for approximately one week prior to admission, taken to the emergency room by family. She has a history of severe coronary artery disease, multiple strokes related to intermittent atrial fibrillation and has been on Eliquis for this. However, she was found to have a hemoglobin of 3.5. She received 4 units of blood. Her anticoagulation was held. She underwent EGD, which revealed a large hiatal hernia with esophageal ulcer. It is the recommendation of the supervisor record press that Eliquis be held for minimum of 6-8 weeks. Then, she have a followup EGD, improve healing, before anticoagulation could be resumed. She will be discharged to follow up with home health. She is a DNR status. She lives with her and a caregiver. Continue on nasal oxygen at 2 L, amlodipine 5, Lipitor 40, B12 tablets, Colace, Aricept 5, Atrovent nebulizers q.8h p.r.n., omeprazole 40 mg a day, sertraline 50 mg a day, and Carafate 1 g before meals and at bedtime. She is discharged to be followed as an outpatient by myself, Dr. CANO, and Dr. Vigil. MD BRINDA Balderas/JUAN /[id number] MTDDevan
--- NOTE | 2019-04-13 11:29 | NUR ---
CALL RECEIVED FROM NALINI DUONG; PT'S DTR REGARDING PRESCRIPTIONS THAT WERE TO BE CALLED IN TO THEIR PHARMACY. NALINI STATES HER FATHER HAD 1 PRESCRIPTION FOR OMEPRAZOLE AND SCRIPTS WERE TO BE CALLED IN BY DR HERNANDEZ FOR NORVASC AND CARAFATE. STATES SHE HAD CALLED DR. HERNANDEZ AND JULIAN 'S OFFICE, BUT RECEIVED NO ASSISTANCE. CM TOOK DTR'S INFO (NALINI DUONG @ [phone])AND PLACED CALL TO DR HERNANDEZ. [facility] IN [place] @ [phone]. CALL WAS PLACED TO DR. HERNANDEZ'S OFFICE. SPOKE W [employer]MS DEVELOPER WHO STATES THE DTR WAS ON THE PHONE W THEM NOW. ANOTHER PERSONNEL FROM [facility]'S OFFICE ANSWERED AND STATES THEY DIDN'T NEED ANYTHING FROM CM AND [facility].
== END 2019-04-12 17:34 | disposition home health service (06) | DRG 381 ==
LOC: ER 08:22 → ERHOLD 10:14 → MED/SURG 17:34
PROVIDERS: ADMIT Internal Medicine Pulmonary Disease; ATTEND Internal Medicine Pulmonary Disease
PROC: 30233N1 Transfusion of Nonautologous Red Blood Cells into Peripheral Vein, Percutaneous Approach (ICD-10-PCS; 2019-04-09)
PROC: 0DB78ZX Excision of Stomach, Pylorus, Via Natural or Artificial Opening Endoscopic, Diagnostic (ICD-10-PCS; 2019-04-12)
PROC: 0DB38ZX Excision of Lower Esophagus, Via Natural or Artificial Opening Endoscopic, Diagnostic (ICD-10-PCS; principal; 2019-04-12 11:30)
DX: K22.10 Ulcer of esophagus without bleeding (principal); D62 Acute posthemorrhagic anemia; Z68.1 Body mass index [BMI] 19.9 or less, adult; K92.1 Melena; F01.50 Vascular dementia, unspecified severity, without behavioral disturbance, psychotic disturbance, mood disturbance, and anxiety; I48.0 Paroxysmal atrial fibrillation; J44.9 Chronic obstructive pulmonary disease, unspecified; K21.0 Gastro-esophageal reflux disease with esophagitis; K44.9 Diaphragmatic hernia without obstruction or gangrene; Z87.440 Personal history of urinary (tract) infections; Z85.118 Personal history of other malignant neoplasm of bronchus and lung; Z86.711 Personal history of pulmonary embolism; Z88.0 Allergy status to penicillin; Z91.048 Other nonmedicinal substance allergy status; I25.10 Atherosclerotic heart disease of native coronary artery without angina pectoris; Z95.1 Presence of aortocoronary bypass graft; Z99.81 Dependence on supplemental oxygen; I73.9 Peripheral vascular disease, unspecified; I10 Essential (primary) hypertension; E78.5 Hyperlipidemia, unspecified; K29.70 Gastritis, unspecified, without bleeding; Z66 Do not resuscitate; Z79.01 Long term (current) use of anticoagulants; R63.6 Underweight
CPT/HCPCS: 36415; 43239; 71045; 80048; 80053; 81001; 82550; 82553; 82607; 82746; 83090; 83540; 83921; 84132; 84466; 84484; 85025; 85610; 85730; 86850; 86900; 86920; 87086; 87186; 88305; 88312; 93005; 93306; 96361; 97139; 99284; J1756; J1940; J2001; J2353; J2354; J3480; J7040; J7050; P9016